=== PATIENT | male | born 1970 | race Caucasian/White ===

== ENCOUNTER 2017-02-15 07:08 | Emergency (ER) | payer OTHER ==
[2017-02-15] MEDS ORDERED: KETOROLAC TROMETHAMINE INJ/PF 30 MG/1 ML SDV IV ONE (08:07)
[2017-02-15] MEDS ORDERED: NORMAL SALINE 1000 ML 1,000 ML IV ONE (08:07)
[2017-02-15 08:37] LABS: ABSOLUTE BASOPHILS # (AUTO) 0.1 10^3/uL (0.0-0.2); ABSOLUTE EOSINOPHILS # (AUTO) 0.3 10^3/uL (0.0-0.6); ABSOLUTE MONOCYTES (AUTO) 0.4 10^3/uL (0.1-1.4); ABSOLUTE NEUT (AUTO) 2.5 10^3/uL (1.7-8.2); BASOPHILS % (AUTO) 1.5 % (0-2); EOSINOPHILS % (AUTO) 6.3 % (0-6); HEMATOCRIT 44.6 % (37.9-51.0); HEMOGLOBIN 15.7 g/dL (13.5-17.0); HGB HCT DIFFERENCE 2.5; LYMPHOCYTES % (AUTO) 24.1 % (13-45); MEAN CORPUSCULAR HEMOGLOBIN 29.9 pg (27.0-33.4); MEAN CORPUSCULAR HGB CONC 35.1 g/dL (32.0-36.0); MEAN CORPUSCULAR VOLUME 85 fl (80-97); MONOCYTES % (AUTO) 8.5 % (3-13); RED BLOOD COUNT 5.24 10^6/uL (4.35-5.55); RED CELL DISTRIBUTION WIDTH 13.3 % (11.5-14.0); SEGMENTED NEUTROPHILS % (AUTO) 59.6 % (42-78); WHITE BLOOD COUNT 4.2 10^3/uL (4.0-10.5)
[2017-02-15 08:52] LABS: ALANINE AMINOTRANSFERASE 192 U/L (21-72); ALBUMIN 4.7 g/dL (3.5-5.0); ALKALINE PHOSPHATASE 93 U/L (38-126); ANION GAP 14 (5-19); ASPARTATE AMINO TRANSFERASE 152 U/L (17-59); BILIRUBIN,DIRECT 0.4 mg/dL (0.0-0.4); BILIRUBIN,TOTAL 0.9 mg/dL (0.2-1.3); BLOOD UREA NITROGEN 13 mg/dL (7-20); CALCIUM 9.9 mg/dL (8.4-10.2); CARBON DIOXIDE 23 mmol/L (22-30); CHLORIDE 107 mmol/L (98-107); CREATININE RESULT 1.39 mg/dL (0.52-1.25); GLUCOSE 117 mg/dL (75-110); LIPASE 138.5 U/L (23-300); POTASSIUM 4.3 mmol/L (3.6-5.0); SODIUM 144.1 mmol/L (137-145); TOTAL PROTEIN 7.9 g/dL (6.3-8.2)
--- NOTE | 2017-02-15 09:19 | ER Document Report ---
ED General - General Chief Complaint: Possible Kidney Stone Stated Complaint: FLANK PAIN Time Seen by Provider: 02/15/17 08:07 Mode of Arrival: Ambulatory Information source: Patient Notes: 46-year-old male presents with complaints of suprapubic right-sided pain starts on this morning. Patient denies any fevers admits to nausea vomiting. Patient notes this feels similar to his previous 7 kidney stones TRAVEL OUTSIDE OF THE [place] IN LAST 30 DAYS: No - HPI Onset: Just prior to arrival Onset/Duration: Sudden Quality of pain: Sharp Severity: Moderate Pain Level: 2 Associated symptoms: None Exacerbated by: Denies Relieved by: Denies Similar symptoms previously: Yes Recently seen / treated by doctor: Yes - Related Data Allergies/Adverse Reactions: acetaminophen [From Percocet] Adverse Reaction (Verified 02/15/17 07:09) oxycodone [From Percocet] Adverse Reaction (Verified 02/15/17 07:09) Past Medical History - Social History Smoking Status: Never Smoker Cigarette use (# per day): No Chew tobacco use (# tins/day): No Smoking Education Provided: No Frequency of alcohol use: Rare Drug Abuse: None Family History: None, Reviewed & Not Pertinent Patient has suicidal ideation: No Patient has homicidal ideation: No - Past Medical History Cardiac Medical History: Reports: Hx Hypertension - Patient reports he is borderline hypertensive and does not take medications Pulmonary Medical History: Reports: Hx Bronchitis - as a child Renal/ Medical History: Reports: Hx Kidney Stones. Denies: Hx Peritoneal Dialysis Musculoskeltal Medical History: Reports Hx Arthritis - Neck and back Past Surgical History: Reports: Hx Appendectomy, Hx Herniorrhaphy, Hx Kidney ( Renal Surgery) - lithotripsy, Hx Orthopedic Surgery - left knee arthroscopy - Immunizations Hx Diphtheria, Pertussis, Tetanus Vaccination: Yes Review of Systems - Review of Systems Notes: REVIEW OF SYSTEMS: CONSTITUTIONAL : Denies fever, chills, or sweats. Denies recent illness. EENT: Denies eye, ear, throat, or mouth pain or symptoms. Denies nasal or sinus congestion or discharge. Denies throat, tongue, or mouth swelling or difficulty swallowing. CARDIOVASCULAR: Denies chest pain. Denies palpitations or racing or irregular heart beat. Denies ankle edema. RESPIRATORY: Denies cough, cold, or chest congestion. Denies shortness of breath, difficulty breathing, or wheezing. GASTROINTESTINAL: admits ot RLQ suprapubic pain GENITOURINARY: Denies difficulty urinating, painful urination, burning, frequency, blood in urine, or discharge. MUSCULOSKELETAL: Denies back or neck pain or stiffness. Denies joint pain or swelling. SKIN: Denies rash, lesions or sores. HEMATOLOGIC : Denies easy bruising or bleeding. LYMPHATIC: Denies swollen, enlarged glands. NEUROLOGICAL: Denies confusion or altered mental status. Denies passing out or loss of consciousness. Denies dizziness or lightheadedness. Denies headache. Denies weakness or paralysis or loss of use of either side. Denies problems with gait or speech. Denies sensory loss, numbness, or tingling. Denies seizures. PSYCHIATRIC: Denies anxiety or stress. Denies depression, suicidal ideation, or homicidal ideation. ALL OTHER SYSTEMS REVIEWED AND NEGATIVE. Dictation was performed using [employer] voice recognition software PHYSICAL EXAMINATION: GENERAL: Well-appearing, well-nourished and in no acute distress. HEAD: Atraumatic, normocephalic. EYES: Pupils equal round and reactive to light, extraocular movements intact, sclera anicteric, conjunctiva are normal. ENT: Nares patent, oropharynx clear without exudates. Moist mucous membranes. NECK: Normal range of motion, supple without lymphadenopathy LUNGS: Breath sounds clear to auscultation bilaterally and equal. No wheezes rales or rhonchi. HEART: Regular rate and rhythm without murmurs ABDOMEN: Soft, nontender, nondistended abdomen. No guarding, no rebound. No masses appreciated. Musculoskeletal: Normal range of motion, no pitting or edema. No cyanosis. NEUROLOGICAL: Cranial nerves grossly intact. Normal speech, normal gait. Normal sensory, motor exams PSYCH: Normal mood, normal affect. SKIN: Warm, Dry, normal turgor, no rashes or lesions noted. Physical Exam - Vital signs Vitals: Temp Pulse Resp BP Pulse Ox 97.6 F 57 L 18 174/97 H 97 02/15/17 07:14 02/15/17 07:14 02/15/17 07:14 02/15/17 07:14 02/15/17 07:14 Course - Re-evaluation Re-evalutation: 02/15/17 09:19 pts presentation ocnsistnat with another kidney stone, he has no ride 02/15/17 09:46 Patient states he feels much better,, will dc home with toradol After performing a Medical Screening Examination, I estimate there is LOW risk for ACUTE APPENDICITIS, BOWEL OBSTRUCTION, ACUTE CHOLECYSTITIS, PERFORATED DIVERTICULITIS, INCARCERATED HERNIA, PANCREATITIS, TESTICULAR TORSION or PERFORATED ULCER, thus I consider the discharge disposition reasonable. Also, there is no evidence or peritonitis, sepsis, or toxicity. I have reevaluated this patient multiple times and no significant life threatening changes are noted. The patient and I have discussed the diagnosis and risks, and we agree with discharging home with close follow-up with the understanding that symptoms and presentations can change. We also discussed returning to the Emergency Department immediately if new or worsening symptoms occur. We have discussed the symptoms which are most concerning (e.g., bloody stool, fever, changing or worsening pain, intractable vomiting - standard verbal up date) that necessitate immediate return. - Vital Signs Vital signs: Temp Pulse Resp BP Pulse Ox 97.6 F 57 L 18 174/97 H 97 02/15/17 07:14 02/15/17 07:14 02/15/17 07:14 02/15/17 07:14 02/15/17 07:14 - Laboratory Result Diagrams: 02/15/17 08:15 02/15/17 08:15 Laboratory results interpreted by me: 02/15/17 02/15/17 02/15/17 08:15 08:15 09:00 Eosinophils % 6.3 H Creatinine 1.39 H Est GFR (Non-Af Amer) 55 L Glucose 117 H AST 152 H ALT 192 H Urine Protein 30 H Urine Blood LARGE H Discharge - Discharge Clinical Impression: Kidney stone on right side Hematuria Qualifiers: Hematuria type: unspecified type Qualified Code(s): R31.9 - Hematuria, unspecified Condition: Stable Disposition: HOME, SELF-CARE Instructions: Kidney Stone ([facility]) Prescriptions: Ondansetron HCl [Zofran 8 mg Tablet] 8 mg PO Q8HP PRN #14 tablet PRN Reason: Ketorolac Tromethamine [Toradol 10 mg Tablet] 10 mg PO Q8 #20 tablet Tamsulosin HCl [Flomax 0.4 mg Cap.sr] 0.4 mg PO DAILY #7 cap.sr.24h Referrals: SAMM DAVILA MD [ACTIVE STAFF] - Follow up tomorrow
[2017-02-15 09:28] LABS: APPEARANCE,URINE CLOUDY; BILIRUBIN,URINE NEGATIVE (NEGATIVE); GLUCOSE, URINE NEGATIVE (NEGATIVE); KETONES,URINE NEGATIVE (NEGATIVE); LEUKOCYTE ESTERASE,URINE NEGATIVE (NEGATIVE); NITRITE,URINE NEGATIVE (NEGATIVE); PROTEIN,URINE 30 mg/dL (NEGATIVE); URINE SPECIFIC GRAVITY 1.017; UROBILINOGEN,URINE NEGATIVE mg/dL (<2.0)
[2017-02-15] MEDS ORDERED: TAMSULOSIN HCL 0.4 MG CAP.SR.24H PO ONE (09:46)
[2017-02-15 10:28] VITALS: BP 134/88
== END 2017-02-15 10:29 | disposition home or self-care (01) ==
LOC: ER 07:08
DX: N20.0 Calculus of kidney (principal); R31.9 Hematuria, unspecified; R11.2 Nausea with vomiting, unspecified; R10.31 Right lower quadrant pain; Z98.890 Other specified postprocedural states
CPT/HCPCS: 99284; 36415; 83690; 85025; 80053; 81001; J1885; J7030

== ENCOUNTER 2017-05-28 20:37 | Emergency (ER) | payer OTHER ==
[2017-05-28 21:14] VITALS: BP 149/94
[2017-05-28] MEDS ORDERED: ACETAMINOPHEN 325 MG TABLET PO ONE (23:57)
--- NOTE | 2017-05-29 00:01 | ER Document Report ---
ED Eye Complaint - General Chief Complaint: Eye Injury Stated Complaint: RIGHT EYE PAIN Time Seen by Provider: 05/28/17 22:03 Mode of Arrival: Ambulatory Information source: Patient TRAVEL OUTSIDE OF THE [place] IN LAST 30 DAYS: No - HPI Onset: This afternoon Eye location: Right Injury: Yes Occurred at: Home Quality of pain: Achy Severity: Mild Exposure: Direct trauma Contact lenses worn: No Notes: Patient arrives with complaints of right eye pain. He states that he was wrestling with his children when he was accidentally elbowed in the right eye and he now has pain in the eye. He denies any loss of vision. He states that his vision seems a little bit fuzzy. He denies any loss of consciousness. Is not on blood thinners. He denies any pain with eye movement. He denies any unilateral numbness tingling or weakness. He denies any significant headache. No chest pain or shortness of breath. He denies any other injuries or any other complaints at this time. - Related Data Allergies/Adverse Reactions: acetaminophen [From Percocet] Adverse Reaction (Verified 02/15/17 07:09) oxycodone [From Percocet] Adverse Reaction (Verified 02/15/17 07:09) Past Medical History - Social History Smoking Status: Smoker,Current Status Unk Chew tobacco use (# tins/day): No Frequency of alcohol use: None Drug Abuse: None Family History: None, Reviewed & Not Pertinent Patient has suicidal ideation: No Patient has homicidal ideation: No - Past Medical History Cardiac Medical History: Reports: Hx Hypertension - Patient reports he is borderline hypertensive and does not take medications Pulmonary Medical History: Reports: Hx Bronchitis - as a child Renal/ Medical History: Reports: Hx Kidney Stones. Denies: Hx Peritoneal Dialysis Musculoskeltal Medical History: Reports Hx Arthritis - Neck and back Past Surgical History: Reports: Hx Appendectomy, Hx Herniorrhaphy, Hx Kidney ( Renal Surgery) - lithotripsy, Hx Orthopedic Surgery - left knee arthroscopy - Immunizations Hx Diphtheria, Pertussis, Tetanus Vaccination: Yes Review of Systems - Review of Systems -: Yes All other systems reviewed and negative Physical Exam - Vital signs Vitals: Temp Pulse Resp BP Pulse Ox 98.2 F 65 18 149/94 H 95 05/28/17 21:11 05/28/17 21:11 05/28/17 21:11 05/28/17 21:11 05/28/17 21:11 - Notes Notes: GENERAL: alert, cooperative, nontoxic, no distress. HEAD: normocephalic, atraumatic EYES: Patient is noted to have a subconjunctival hemorrhage to the right eye in the inferior aspect. There is no hyphema. No significant tenderness to the orbital area with no swelling or crepitus. Pupils are equal round and react to light bilaterally. Extraocular muscles are intact bilaterally. Visual casas are all intact. Please see nurse charting for visual acuity. Swartz lamp exam shows no corneal abrasions or dendritic lesions. EARS: no external swelling, no external redness NOSE: atraumatic, no external swelling MOUTH/THROAT: mucous membranes moist and pink NECK: soft, supple, full range of motion, no meningismus. CHEST: no distress, lungs clear and equal throughout. No wheezing, rales, rhonchi. CARDIAC: regular rate and rhythm, no murmur, normal capillary refill, normal pulses. BACK: full range of motion, no CVA tenderness. EXTREMITIES: full range of motion of all extremities. No redness, no swelling. NEURO: alert and oriented 3, no focal deficits, full range of motion of all extremities. PYSCH: appropriate mood, affect. Patient is cooperative. SKIN: pink, warm, dry, no rash. - HEENT Visual acuity- Right eye: 20/40 Visual acuity- Left eye: 20/40 Course - Re-evaluation Re-evalutation: 05/28/17 23:58 Digital block patient is nontoxic appearing with stable vitals. The patient was elbowed in the right eye while wrestling with his children earlier today. He now is noted to have a subconjunctival hemorrhage. There is no hyphema. His visual casas are intact. Extraocular muscles are intact. Visual acuity is unremarkable. No sign of orbital fracture. Patient has a normal corneal exam. He was given a dose of Tylenol in the emergency department and will be discharged home with a referral to ophthalmology as needed. He states that he has naproxen at home that he can take as needed for pain. He was instructed to ice his eye as well. Follow-up with ophthalmology if not improving in the next few days, sooner for increasing pain, fever, blurred or loss vision, or any further concerns. The patient is noted to have elevated blood pressure during today's emergency department visit. The patient was informed of this finding. The patient was instructed that this may be related to pre-hypertension and requires further evaluation with a primary care provider. The patient has no hypertensive symptoms at this time. The patient's emergency department workup and current diagnosis were explained to the patient and or family. Follow-up instructions were provided. Medications if prescribed were discussed. Instructions for when to return to the emergency department including specific worrisome symptoms were discussed with the patient and/or family. - Vital Signs Vital signs: Temp Pulse Resp BP Pulse Ox 98.2 F 65 18 149/94 H 95 05/28/17 21:11 05/28/17 21:11 05/28/17 21:11 05/28/17 21:11 05/28/17 21:11 Procedures - Eye Procedure Right eye Fluorescein applied: Right Discharge - Discharge Clinical Impression: Subconjunctival hemorrhage of right eye Condition: Stable Disposition: HOME, SELF-CARE Instructions: Subconjunctival Hemorrhage ([facility]) Additional Instructions: Tylenol and Naprosyn as needed for pain. Apply ice to sore area. Follow-up with ophthalmology for increased pain, fever, blurred or loss vision, or for any further concerns. Your blood pressure was elevated during today's visit. Have this rechecked with your doctor. Forms: Elevated Blood Pressure, Smoking Cessation Education Referrals: JASON LEONARDO MD [NO LOCAL MD] - Follow up as needed MYRA RUSH OT [OPTHALMIC TUBE MILL OPERATOR] - Follow up as needed KASHMIR HAYES DO [ACTIVE STAFF] - Follow up as needed CHELA CHAVEZ MD [NO LOCAL MD] - Follow up as needed LARRY BRAXTON MD [ACTIVE STAFF] - Follow up as needed ETHEL MORALES MD [NO LOCAL MD] - Follow up as needed SHAISTA SANCHEZ MD [ACTIVE STAFF] - Follow up as needed TAMIKO GREGORY DO [ACTIVE STAFF] - Follow up as needed JOHN QURESHI MD [CONSULTING STAFF] - Follow up as needed MEGHANA BROWN MD [CONSULTING STAFF] - Follow up as needed
== END 2017-05-29 00:21 | disposition home or self-care (01) ==
LOC: ER 20:37
DX: H11.31 Conjunctival hemorrhage, right eye (principal); W50.0XXA Accidental hit or strike by another person, initial encounter; Y93.83 Activity, rough housing and horseplay; F17.200 Nicotine dependence, unspecified, uncomplicated; I10 Essential (primary) hypertension; Z88.6 Allergy status to analgesic agent; Z87.442 Personal history of urinary calculi
CPT/HCPCS: 99283

== ENCOUNTER 2017-08-12 21:20 | Emergency (ER) | payer OTHER ==
[2017-08-12 21:52] VITALS: BP 159/91
[2017-08-12] MEDS ORDERED: TRAMADOL HCL 50 MG TABLET PO ONE (22:17)
[2017-08-12] MEDS ORDERED: LIDOCAINE 5% (700 MG) TRANSDERMAL ADH..PATCH TP ONE (22:17)
--- NOTE | 2017-08-12 22:58 | ER Document Report ---
ED General - General Chief Complaint: Shoulder Pain Stated Complaint: SHOULDER PAIN Time Seen by Provider: 08/12/17 22:17 Notes: Patient is a 47-year-old [id number] male who presents with 3 days of left shoulder pain. The patient describes it as a dull, constant, aching pain worsened by attempts at moving the shoulder. He has been trying ibuprofen and Tylenol without any relief of the pain. He states that the symptoms started at work where he does repetitive ranges of motion with the left shoulder. He states that initially started as a slight pain which he continued to work through and has gotten progressively worse since that time. He has no history of similar pain or injury in the past. He has not seen his primary doctor regarding today's concerns. He denies any weakness or numbness of the left upper extremity. He has not seen his primary doctor regarding today's concerns. He denies any direct trauma to the extremity. TRAVEL OUTSIDE OF THE [place] IN LAST 30 DAYS: No - Related Data Allergies/Adverse Reactions: acetaminophen [From Percocet] Adverse Reaction (Verified 02/15/17 07:09) oxycodone [From Percocet] Adverse Reaction (Verified 02/15/17 07:09) Past Medical History - General Information source: Patient - Social History Smoking Status: Never Smoker Chew tobacco use (# tins/day): No Frequency of alcohol use: None Drug Abuse: None Lives with: Alone Family History: Reviewed & Not Pertinent Patient has suicidal ideation: No Patient has homicidal ideation: No - Past Medical History Cardiac Medical History: Reports: Hx Hypertension - Patient reports he is borderline hypertensive and does not take medications Pulmonary Medical History: Reports: Hx Bronchitis - as a child Renal/ Medical History: Reports: Hx Kidney Stones. Denies: Hx Peritoneal Dialysis Musculoskeltal Medical History: Reports Hx Arthritis - Neck and back Past Surgical History: Reports: Hx Appendectomy, Hx Herniorrhaphy, Hx Kidney ( Renal Surgery) - lithotripsy, Hx Orthopedic Surgery - left knee arthroscopy - Immunizations Hx Diphtheria, Pertussis, Tetanus Vaccination: Yes Review of Systems - Review of Systems Notes: Constitutional: Negative for fever. HENT: Negative for sore throat. Eyes: Negative for visual changes. Cardiovascular: Negative for chest pain. Respiratory: Negative for shortness of breath. Gastrointestinal: Negative for abdominal pain, vomiting or diarrhea. Genitourinary: Negative for dysuria. Musculoskeletal: Positive for left shoulder pain Skin: Negative for rash. Neurological: Negative for headaches, weakness or numbness. 10 point ROS negative except as marked above and in HPI. Physical Exam - Vital signs Vitals: Temp Pulse Resp BP Pulse Ox 97.9 F 61 17 159/91 H 96 08/12/17 21:50 08/12/17 21:50 08/12/17 21:50 08/12/17 21:50 08/12/17 21:50 Interpretation: Hypertensive Notes: PHYSICAL EXAMINATION: GENERAL: Well-appearing, well-nourished and in no acute distress. HEAD: Atraumatic, normocephalic. EYES: Pupils equal round and reactive to light, extraocular movements intact, sclera anicteric, conjunctiva are normal. ENT: nares patent, oropharynx clear without exudates. Moist mucous membranes. NECK: Normal range of motion, supple without lymphadenopathy LUNGS: Breath sounds clear to auscultation bilaterally and equal. No wheezes rales or rhonchi. HEART: Regular rate and rhythm without murmurs ABDOMEN: Soft, nontender, normoactive bowel sounds. No guarding, no rebound. No masses appreciated. EXTREMITIES: Patient is unable to raise his left arm beyond 90. Pain on palpation of the trapezius muscle as well as the AC joint. No obvious deformity of the shoulder. Extremity examination is otherwise unremarkable. NEUROLOGICAL: No focal neurological deficits. RMU motor and sensory distribution is intact bilaterally PSYCH: Normal mood, normal affect. SKIN: Warm, Dry, normal turgor, no rashes or lesions noted. Course - Re-evaluation Re-evalutation: 08/12/17 22:55 No evidence of a septic joint, gout flare, dislocation, or fracture on exam and imaging. Clinical history is most consistent with a ligamentous injury of the left shoulder likely the abductor rotator tendon. Patient also has pain on palpation of the AC joint although there is no evidence of an AC joint separation on x-ray. Vitals wnl. At this time, I do not see an indication for labs or further imaging. Will discharge with conservative measures, return precautions, and follow-up recommendations. At this time will discharge with return precautions and follow-up recommendations. Verbal discharge instructions given a the bedside and opportunity for questions given. Medication warnings reviewed. Patient is in agreement with this plan and has verbalized understanding of return precautions and the need for primary care follow-up in the next 24-72 hours. - Vital Signs Vital signs: Temp Pulse Resp BP Pulse Ox 97.9 F 61 17 159/91 H 96 08/12/17 21:50 08/12/17 21:50 08/12/17 21:50 08/12/17 21:50 08/12/17 21:50 - Diagnostic Test Radiology reviewed: Image reviewed, Reports reviewed Radiology results interpreted by me: 08/12/17 22:56 Left shoulder x-ray: No acute fracture or dislocation Discharge - Discharge Clinical Impression: Left shoulder pain Qualifiers: Chronicity: acute Qualified Code(s): M25.512 - Pain in left shoulder Condition: Good Disposition: HOME, SELF-CARE Additional Instructions: Your x-ray does not show any acute fracture today. You likely have a ligamentous strain. For your pain: Take ibuprofen 600 mg and acetaminophen 1000 mg every 6 hours together as needed for pain. You may use tramadol that has been prescribed as needed for not controlled by Tylenol. Continue to apply ice to the area is much your able. Please follow-up with your primary care physician if you do not have improving your symptoms in the next 1-2 weeks. Often times shoulder injuries take months to completely recover. You may need to see physical therapy for recovery. Please return immediately if you develop weakness, numbness, spreading redness from the area, or any other symptoms that are concerning to you. Prescriptions: Tramadol HCl 50 mg PO Q6H PRN #10 tablet PRN Reason: Severe Pain
--- NOTE | 2017-08-12 23:05 | RADIOLOGY REPORT (SQ) ---
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 NUMBER OF VIEWS: Three views. TECHNIQUE: Internal rotation, external rotation, and Y view images acquired of the left shoulder. LIMITATIONS: None. FINDINGS: MINERALIZATION: Normal. BONES: No acute fracture or dislocation. No worrisome bone lesions. JOINTS: No dislocation. VISUALIZED LUNGS AND RIBS: No pneumothorax. No rib fracture. SOFT TISSUES: No radiopaque foreign body. OTHER: No other significant finding. IMPRESSION: NO RADIOGRAPHIC EVIDENCE OF ACUTE INJURY. TECHNICAL DOCUMENTATION: JOB ID: [id number] [place]-72 2010 [employer]- All Rights Reserved Reading location - IP/workstation name: [email or web address]
== END 2017-08-12 23:17 | disposition home or self-care (01) ==
LOC: ER 21:20
DX: M25.512 Pain in left shoulder (principal); Z88.6 Allergy status to analgesic agent; Z87.442 Personal history of urinary calculi
CPT/HCPCS: 99283

== ENCOUNTER 2017-11-19 21:29 | Emergency (ER) | payer OTHER ==
[2017-11-19] MEDS ORDERED: DEXAMETHASONE SOD PHOS INJ 10 MG/1 ML VIAL IM ONE (23:09)
--- NOTE | 2017-11-19 23:11 | ER Document Report ---
ED General - General Chief Complaint: Ear Pain Stated Complaint: EAR PAIN Time Seen by Provider: 11/19/17 22:49 Notes: Patient is a 47-year-old male who presents with complaint of bilateral ear pain. He says he feels like his blood pressure behind his ears. He says whenever he goes below his nose he has severe pressure behind his ears that hurts. It is worse on the right side. He does not smoke but he is around a lot of secondhand smoke at home and at work. He denies any recent fevers or infections. No sore throat. No other complaints at this time. TRAVEL OUTSIDE OF THE [place] IN LAST 30 DAYS: No - Related Data Allergies/Adverse Reactions: acetaminophen [From Percocet] Adverse Reaction (Verified 02/15/17 07:09) oxycodone [From Percocet] Adverse Reaction (Verified 02/15/17 07:09) Past Medical History - Social History Smoking Status: Never Smoker Chew tobacco use (# tins/day): No Frequency of alcohol use: Rare Drug Abuse: None Family History: Reviewed & Not Pertinent Patient has suicidal ideation: No Patient has homicidal ideation: No - Past Medical History Cardiac Medical History: Reports: Hx Hypertension - Patient reports he is borderline hypertensive and does not take medications Pulmonary Medical History: Reports: Hx Bronchitis - as a child Renal/ Medical History: Reports: Hx Kidney Stones. Denies: Hx Peritoneal Dialysis Musculoskeletal Medical History: Reports Hx Arthritis - Neck and back Past Surgical History: Reports: Hx Appendectomy, Hx Herniorrhaphy, Hx Kidney ( Renal Surgery) - lithotripsy, Hx Orthopedic Surgery - left knee arthroscopy - Immunizations Hx Diphtheria, Pertussis, Tetanus Vaccination: Yes Review of Systems - Review of Systems Notes: My Normal Review Basic REVIEW OF SYSTEMS: CONSTITUTIONAL : Denies fever, chills, or sweats. Denies recent illness. EENT: Ear pain RESPIRATORY: Denies cough, cold, or chest congestion. Denies shortness of breath, difficulty breathing, or wheezing. NEUROLOGICAL: Denies altered mental status or loss of consciousness. mild headache. ALL OTHER SYSTEMS REVIEWED AND NEGATIVE. Physical Exam - Vital signs Vitals: Temp Pulse Resp BP Pulse Ox 98.5 F 58 L 17 161/93 H 98 11/19/17 22:02 11/19/17 22:02 11/19/17 22:02 11/19/17 22:02 11/19/17 22:02 - Notes Notes: General Appearance: Well nourished, alert, cooperative, no acute distress, no obvious discomfort. Well-appearing. Vitals: reviewed, See vital signs table. Head: no swelling or tenderness to the head Eyes: PERRL, EOMI, Conjuctiva clear Mouth: No decreasd moisture Throat: No tonsillar inflammation, No airway obstruction, No lymphadenopathy Ears: Normal-appearing tympanic membranes bilaterally with clear fluid behind them. Neuro: speech clear, oriented x 3, normal affect, responds appropriately to questions. Course - Re-evaluation Re-evalutation: 11/20/17 06:48 Patient is pressure on series causing pain most likely due to eustachian tube dysfunction. I gave him a dose of Decadron encouraged him to take over-the- counter Sudafed. I am informed him that if his symptoms are not improving after 3-4 days and he can follow-up with the ear nose and throat doctor, Dr. James. Encourage him return to ER immediately if he has worsening pain, fevers , or if he feels unwell. Patient agrees with plan will be discharged home. - Vital Signs Vital signs: Temp Pulse Resp BP Pulse Ox 97.6 F 65 18 164/91 H 98 11/19/17 23:58 11/19/17 23:58 11/19/17 23:58 11/19/17 23:58 11/19/17 23:58 Discharge - Discharge Clinical Impression: Ear pain Qualifiers: Laterality: bilateral Qualified Code(s): H92.03 - Otalgia, bilateral Condition: Good Disposition: HOME, SELF-CARE Additional Instructions: Please take over the counter decongestants such as pseudophedrine. Please follow up with Dr. James, ENT physician, if you are not having improvement in your symptoms after 3-4 days. Try to stay away from cigarette smoke.
[2017-11-19 23:58] VITALS: BP 164/91
== END 2017-11-19 23:58 | disposition home or self-care (01) ==
LOC: ER 21:29
DX: H92.03 Otalgia, bilateral (principal)
CPT/HCPCS: 99282; 96372; J1100

== ENCOUNTER 2018-01-04 23:22 | Emergency (ER) | payer OTHER ==
[2018-01-05] MEDS ORDERED: RINGERS SOLUTION,LACTATED 1,000 ML IV ONE (01:17)
[2018-01-05 02:03] LABS: ABSOLUTE BASOPHILS # (AUTO) 0.1 10^3/uL (0.0-0.2); ABSOLUTE EOSINOPHILS # (AUTO) 0.3 10^3/uL (0.0-0.6); ABSOLUTE LYMPHOCYTES (AUTO) 1.6 10^3/uL (0.5-4.7); ABSOLUTE MONOCYTES (AUTO) 0.7 10^3/uL (0.1-1.4); BASOPHILS % (AUTO) 0.9 % (0-2); EOSINOPHILS % (AUTO) 4.1 % (0-6); HEMATOCRIT 44.6 % (37.9-51.0); HEMOGLOBIN 15.7 g/dL (13.5-17.0); LYMPHOCYTES % (AUTO) 24.5 % (13-45); MEAN CORPUSCULAR HGB CONC 35.3 g/dL (32.0-36.0); MEAN CORPUSCULAR VOLUME 85 fl (80-97); MONOCYTES % (AUTO) 10.3 % (3-13); PLATELET COUNT 229 10^3/uL (150-450); RED BLOOD COUNT 5.25 10^6/uL (4.35-5.55); RED CELL DISTRIBUTION WIDTH 13.5 % (11.5-14.0); SEGMENTED NEUTROPHILS % (AUTO) 60.2 % (42-78); TOTAL CELLS COUNTED % (AUTO) 100 %; WHITE BLOOD COUNT 6.6 10^3/uL (4.0-10.5)
[2018-01-05 02:18] LABS: ALANINE AMINOTRANSFERASE 174 U/L (21-72); ALBUMIN 5.2 g/dL (3.5-5.0); ALKALINE PHOSPHATASE 86 U/L (38-126); ANION GAP 18 (5-19); ASPARTATE AMINO TRANSFERASE 177 U/L (17-59); BILIRUBIN,DIRECT 0.4 mg/dL (0.0-0.4); BILIRUBIN,TOTAL 1.1 mg/dL (0.2-1.3); BLOOD UREA NITROGEN 22 mg/dL (7-20); CALCIUM 10.5 mg/dL (8.4-10.2); CARBON DIOXIDE 22 mmol/L (22-30); CHLORIDE 100 mmol/L (98-107); CREATINE KINASE 1065 U/L (55-170); GLUCOSE 117 mg/dL (75-110); SODIUM 140.4 mmol/L (137-145); TOTAL PROTEIN 9.2 g/dL (6.3-8.2)
[2018-01-05] MEDS ORDERED: NORMAL SALINE 1000 ML 1,000 ML IV ONE ×2 (02:24→04:14)
--- NOTE | 2018-01-05 02:37 | ER Document Report ---
ED General - General Mode of Arrival: Ambulatory Information source: Patient TRAVEL OUTSIDE OF THE [place] IN LAST 30 DAYS: No <RUFINO DORANTES - Last Filed: 01/05/18 04:41> <ELSI MATHIS - Last Filed: 01/05/18 05:02> - General Chief Complaint: Abdominal Cramping Stated Complaint: ABDOMINAL CRAMPING Time Seen by Provider: 01/05/18 01:10 Notes: Patient is a 47-year-old male presenting to the emergency department complaining of cramping in the lower extremities, groin area and right lower quadrant. Patient states that he believes he got overheated today while at work and became dehydrated. He states his cramps "feel deep" and believes they are muscle spasms. Patient states the cramping was relieved with standing up and exasperated when sitting down. 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 (RUFINO DORANTES) - Related Data Allergies/Adverse Reactions: acetaminophen [From Percocet] Adverse Reaction (Verified 02/15/17 07:09) oxycodone [From Percocet] Adverse Reaction (Verified 02/15/17 07:09) Past Medical History - General Information source: Patient - Social History Smoking Status: Never Smoker Chew tobacco use (# tins/day): No Frequency of alcohol use: Occasional Drug Abuse: None Family History: Reviewed & Not Pertinent Patient has suicidal ideation: No Patient has homicidal ideation: No - Past Medical History Cardiac Medical History: Reports: Hx Hypertension - Patient reports he is borderline hypertensive and does not take medications Pulmonary Medical History: Reports: Hx Bronchitis - as a child Renal/ Medical History: Reports: Hx Kidney Stones Musculoskeletal Medical History: Reports Hx Arthritis - Neck and back Past Surgical History: Reports: Hx Appendectomy, Hx Herniorrhaphy, Hx Kidney ( Renal Surgery) - lithotripsy, Hx Orthopedic Surgery - left knee arthroscopy - Immunizations Hx Diphtheria, Pertussis, Tetanus Vaccination: Yes <RUFINO DORANTES - Last Filed: 01/05/18 04:41> Review of Systems - Review of Systems Constitutional: No symptoms reported EENT: No symptoms reported Cardiovascular: No symptoms reported Respiratory: No symptoms reported Gastrointestinal: See HPI, Abdominal pain Genitourinary: No symptoms reported Musculoskeletal: See HPI Skin: No symptoms reported Hematologic/Lymphatic: No symptoms reported Neurological/Psychological: No symptoms reported -: Yes All other systems reviewed and negative <RUFINO DORANTES - Last Filed: 01/05/18 04:41> Physical Exam - Vital signs Interpretation: Normal - General General appearance: Appears well, Alert - HEENT Head: Normocephalic, Atraumatic Eyes: Normal Pupils: PERRL Mucous membranes: Dry - Respiratory Respiratory status: No respiratory distress Chest status: Nontender Breath sounds: Normal Chest palpation: Normal - Cardiovascular Rhythm: Regular Heart sounds: Normal auscultation Murmur: No - Abdominal Inspection: Normal Distension: No distension Bowel sounds: Normal Tenderness: Nontender Organomegaly: No organomegaly - Back Back: Normal, Nontender - Extremities General upper extremity: Normal inspection, Nontender, Normal color, Normal ROM , Normal temperature General lower extremity: Normal inspection, Nontender, Normal color, Normal ROM , Normal temperature, Normal weight bearing. No: Abi's sign - Neurological Neuro grossly intact: Yes Cognition: Normal Orientation: AAOx4 Penelope Coma Scale Eye Opening: Spontaneous [place] Coma Scale Verbal: Oriented [place] Coma Scale Motor: Obeys Commands Penelope Coma Scale Total: 15 Speech: Normal Motor strength normal: LUE, RUE, LLE, RLE Sensory: Normal - Psychological Associated symptoms: Normal affect, Normal mood - Skin Skin Temperature: Warm Skin Moisture: Dry Skin Color: Normal <ELSI MATHIS - Last Filed: 01/05/18 05:02> - Vital signs Vitals: Temp Pulse Resp BP Pulse Ox 98.1 F 67 18 161/104 H 98 01/05/18 00:21 01/05/18 00:21 01/05/18 00:21 01/05/18 00:21 01/05/18 00:21 Course - Laboratory Result Diagrams: 01/05/18 01:45 01/05/18 03:50 <RUFINO DORANTES - Last Filed: 01/05/18 04:41> - Laboratory Result Diagrams: 01/05/18 01:45 01/05/18 03:50 <ELSI MATHIS - Last Filed: 01/05/18 05:02> - Re-evaluation Re-evalutation: 01/05/18 05:01 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 He had decreased p.o. intake over the last 2 days. He does not use any supplements or abuse any substances. Patient's initial CK was 1000. BUN and creatinine are elevated. Patient was fluid resuscitated. His BUN and creatinine are trending down and his CK has also trended down. Urine with no blood. Patient is taking p.o. without difficulty. He is not having any difficulty urinating. He will be discharged home and is instructed to continue to hydrate and not to go to work later today in the heat. Understands and agrees with plan. Stable for discharge. Follow-up with PMD this week. (ELSI MATHIS) - Vital Signs Vital signs: Temp Pulse Resp BP Pulse Ox 98.1 F 67 18 161/104 H 98 01/05/18 00:21 01/05/18 00:21 01/05/18 00:21 01/05/18 00:21 01/05/18 00:21 - Laboratory Laboratory results interpreted by me: 01/05/18 01/05/18 01/05/18 01:45 03:50 03:50 BUN 22 H 22 H Creatinine 1.94 H 1.59 H Est GFR ( Amer) 45 L 57 L Est GFR (Non-Af Amer) 37 L 47 L Glucose 117 H 118 H Calcium 10.5 H AST 177 H ALT 174 H Creatine Kinase 1065 H 819 H Total Protein 9.2 H Albumin 5.2 H Discharge <RUFINO DORANTES - Last Filed: 01/05/18 04:41> <ELSI MATHIS - Last Filed: 01/05/18 05:02> - Discharge Clinical Impression: Dehydration Condition: Stable Disposition: HOME, SELF-CARE Instructions: Dehydration ([facility]) Additional Instructions: Make sure you are drinking plenty of fluids especially if you are working in the heat. Follow-up with your doctor this week and return immediately if you have any worsening or concerning symptoms. Forms: Return to Work Scribe Attestation: 01/05/18 05:02 I personally performed the services described in the documentation, reviewed and edited the documentation which was dictated to the scribe in my presence, and it accurately records my words and actions. (ELSI MATHIS) Scribe Documentation - Scribe Written by Scribe:: Reji Modi, 01/05/2018 02:37 acting as scribe for :: Zacarias <RUFINO DORANTES - Last Filed: 01/05/18 04:41>
[2018-01-05 02:40] LABS: APPEARANCE,URINE CLEAR; BILIRUBIN,URINE NEGATIVE (NEGATIVE); COLOR,URINE YELLOW; GLUCOSE, URINE NEGATIVE (NEGATIVE); KETONES,URINE NEGATIVE (NEGATIVE); LEUKOCYTE ESTERASE,URINE NEGATIVE (NEGATIVE); NITRITE,URINE NEGATIVE (NEGATIVE); PROTEIN,URINE NEGATIVE (NEGATIVE); URINE SPECIFIC GRAVITY 1.011; UROBILINOGEN,URINE NEGATIVE mg/dL (<2.0)
[2018-01-05 04:14] LABS: ANION GAP 14 (5-19); BLOOD UREA NITROGEN 22 mg/dL (7-20); CALCIUM 9.5 mg/dL (8.4-10.2); CARBON DIOXIDE 22 mmol/L (22-30); CHLORIDE 104 mmol/L (98-107); GLUCOSE 118 mg/dL (75-110); POTASSIUM 4.1 mmol/L (3.6-5.0); SODIUM 139.8 mmol/L (137-145)
[2018-01-05 05:39] VITALS: BP 140/92
== END 2018-01-05 05:39 | disposition home or self-care (01) ==
LOC: ER 23:22
DX: E86.0 Dehydration (principal); R10.84 Generalized abdominal pain; Z88.6 Allergy status to analgesic agent; Z87.442 Personal history of urinary calculi
CPT/HCPCS: 99284; 96360; 96361; 36415; 82550; 85025; 80048; 80053; 81001; J7030; J7120

== ENCOUNTER 2018-11-23 20:12 | Emergency (ER) | payer OTHER ==
[2018-11-23] MEDS ORDERED: DEXAMETHASONE SOD PHOS INJ 10 MG/1 ML VIAL IM ONE (22:28)
[2018-11-23] MEDS ORDERED: LIDOCAINE 5% (700 MG) TRANSDERMAL ADH..PATCH TP ONE (22:28)
[2018-11-23] MEDS ORDERED: KETOROLAC TROMETHAMINE 60 MG/2 ML SDV IM ONE (22:28)
--- NOTE | 2018-11-23 22:29 | ER Document Report ---
HPI - HPI Time Seen by Provider: 11/23/18 22:22 Pain Level: 5 Context: Patient is a 48-year-old male who presents to the emergency department with a chief complaints of low back pain. He states that he has had his low back pain for the past few months. This morning he woke up and he was crushed up in a ball because the pain was so bad. He states that the pain is in bilateral sides of his back and radiates down his right buttock. Patient has a past medical history of a hernia, kidney stones, but denies any feeling like his kidney stones in the past. Denies any hematuria. Patient is currently on naproxen. He has not seen his primary care provider in regards to this issue. Denies IV drug abuse, loss of bowel or bladder function, unable to walk, or any other neurological symptoms. - ROS Notes: REVIEW OF SYSTEMS: CONSTITUTIONAL : Denies recent illness. Denies recent unintentional weight loss. Denies fever, chills, or sweats. EENT: Denies eye, ear, throat, or mouth pain, discharge, or symptoms. Denies nasal or sinus congestion. CARDIOVASCULAR: Denies chest pain. RESPIRATORY: Denies shortness of breath, cough, congestion, difficulty breathing, or wheezing. GASTROINTESTINAL: Denies nausea, vomiting, and diarrhea. Denies abdominal pain. Denies constipation. GENITOURINARY: Denies difficulty urinating, burning, blood in urine, urgency or frequency. MUSCULOSKELETAL: See HPI SKIN: Denies rash, itchiness, or lesions HEMATOLOGIC : Denies easy bruising or bleeding. LYMPHATIC: Denies swollen, painful, enlarged glands. NEUROLOGICAL: Denies no numbness or tingling denies weakness. Denies headache. Denies altered mental status. Denies alteration in speech. PSYCHIATRIC: Denies stress, anxiety, alteration in sleep patterns, or depression. All other systems reviewed and negative. - REPRODUCTIVE Reproductive: DENIES: : Past Medical History - Social History Smoking Status: Unknown if Ever Smoked Family History: Reviewed & Not Pertinent - Past Medical History Cardiac Medical History: Reports: Hx Hypertension - Patient reports he is borderline hypertensive and does not take medications Pulmonary Medical History: Reports: Hx Bronchitis - as a child Renal/ Medical History: Reports: Hx Kidney Stones. Denies: Hx Peritoneal Dialysis Musculoskeletal Medical History: Reports Hx Arthritis - Neck and back Past Surgical History: Reports: Hx Appendectomy, Hx Herniorrhaphy, Hx Kidney (Renal Surgery) - lithotripsy, Hx Orthopedic Surgery - left knee arthroscopy - Immunizations Hx Diphtheria, Pertussis, Tetanus Vaccination: Yes Vertical Provider Document - CONSTITUTIONAL Agree With Documented VS: Yes Exam Limitations: No Limitations General Appearance: No Apparent Distress - INFECTION CONTROL TRAVEL OUTSIDE OF THE [place] IN LAST 30 DAYS: No - HEENT HEENT: Atraumatic, Normocephalic - NECK Neck: Normal Inspection - RESPIRATORY Respiratory: No Respiratory Distress - CARDIOVASCULAR Cardiovascular: Regular Rate, Regular Rhythm Pulses: Normal: Radial - BACK Back: Normal Inspection - MUSCULOSKELETAL/EXTREMETIES Musculoskeletal/Extremeties: Tender - Bilateral lower back, especially on right side - NEURO Level of Consciousness: Awake, Alert, Appropriate Motor/Sensory: No Motor Deficit Deep Tendon Reflexes: 2+ - DERM Integumentary: Warm, Dry Course - Re-evaluation Re-evalutation: 11/23/18 22:31 Differential diagnosis for back pain includes muscle spasm, muscle strain, slipped disc cauda equina syndrome, vertebral fracture, vertebral tumor, epidural abscess, pyelonephritis, or AAA. Based on history and exam, the most likely etiology of the patient's back pain is chronic. Emergent MRI is not indicated at this time because the patient does not have new weakness, or cauda equina syndrome. Patient does not have bladder or bowel dysfunction. Patient does not have history of IV drug use, therefore, I do not suspect an epidural abscess. Patient does not have recent weight loss or night sweats, and does not have a known history of cancer. Patient received Decadron, Toradol, and lidocaine patch. Lidocaine patch prescription was provided for the patient to go home with. Patient has follow- up with his primary care provider in regards to this visit. Follow-up precautions were given. Verbal discharge instructions were given to the patient. They verbalized understanding. They are stable for discharge. - Vital Signs Vital signs: Temp Pulse Resp BP Pulse Ox 98.2 F 61 18 146/90 H 97 11/23/18 20:20 11/23/18 20:20 11/23/18 20:20 11/23/18 20:20 11/23/18 20:20 Discharge - Discharge Clinical Impression: Low back pain Qualifiers: Chronicity: chronic Back pain laterality: midline Sciatica presence: with sciatica Sciatica laterality: sciatica of right side Qualified Code(s): M54.41 - Lumbago with sciatica, right side Condition: Stable Disposition: HOME, SELF-CARE Instructions: Ice Packs ([facility]), Low Back Pain ([facility]), Warm Packs ([facility]) Additional Instructions: You were seen today in the emergency department for back pain. Your back pain is most consistent with sciatic nerve pain. You may take naproxen 500 mg twice a day, and acetaminophen 1000 mg every 6 hours as needed for the pain. You may also buy [id number] Aspercreme with lidocaine and apply to the area per box instructions. If you develop a fever greater than 100.4 F, lose bowel or bladder function, are unable to walk, or have any symptoms that are worrisome to you, please return to the emergency department. Follow-up with your primary care provider in regards to this visit. Prescriptions: Lidocaine [Lidoderm 5% (700 mg) Transdermal Patch] 1 patch TP DAILY PRN #10 adh..patch PRN Reason: Forms: Return to Work Referrals: [facility] [Primary Care [facility]] - Follow up as needed
[2018-11-23 22:54] VITALS: BP 159/97
== END 2018-11-23 22:53 | disposition home or self-care (01) ==
LOC: ER 20:12
DX: M54.41 Lumbago with sciatica, right side (principal); M79.604 Pain in right leg; Z79.899 Other long term (current) drug therapy; I10 Essential (primary) hypertension
CPT/HCPCS: 99283; 96372; J1885; J1100

== ENCOUNTER 2019-04-24 17:29 | Emergency (ER) | payer OTHER ==
[2019-04-24] MEDS ORDERED: IBUPROFEN 800 MG TABLET PO ONE (17:44)
--- NOTE | 2019-04-24 17:49 | ER Document Report ---
ED Medical Screen (RME) - General Chief Complaint: Laceration Stated Complaint: RIGHT SHOULDER LACERATION Time Seen by Provider: 04/24/19 17:44 Primary Care Provider: VIVI EVANS [Primary Care Provider] - Follow up as needed TRAVEL OUTSIDE OF THE [place] IN LAST 30 DAYS: No - HPI Notes: 04/24/19 17:45 49-year-old male presents to the emergency room today with a 4 cm "V" laceration to his right shoulder as well as a 1 cm linear laceration to his right bicep after he allegedly fell into the wall and hit a frame after tripping over the dog approximately 1 hour ago. Patient also has an abrasion on his head. Patient denies any loss of consciousness or change in level consciousness. Patient denies being on blood thinners. Has not had any [id number] medications for pain. Pain is approximately 5 out of 10, throbbing achy. Bleeding is controlled. Denies any chest pain shortness of breath, fevers or chills. Patient states his tetanus is not up-to-date. I have greeted and performed a rapid initial assessment of this patient. A comprehensive ED assessment and evaluation of the patient, analysis of test results and completion of the medical decision making process will be conducted by additional ED providers. PHYSICAL EXAMINATION: GENERAL: Well-appearing, well-nourished and in no acute distress. HEAD: Atraumatic, normocephalic. NECK: Normal range of motion LUNGS: No respiratory distress Musculoskeletal: Normal range of motion NEUROLOGICAL: Normal speech, normal gait. PSYCH: Normal mood, normal affect. SKIN: Warm, Dry, normal turgor, no rashes or lesions noted. right shoulder with 4cm "V" laceration, 1 cm linear laceration to right bicep. - Related Data Allergies/Adverse Reactions: acetaminophen [From Percocet] Adverse Reaction (Verified 04/24/19 17:44) oxycodone [From Percocet] Adverse Reaction (Verified 04/24/19 17:44) Past Medical History - Past Medical History Cardiac Medical History: Reports: Hx Hypertension - Patient reports he is borderline hypertensive and does not take medications Pulmonary Medical History: Reports: Hx Bronchitis - as a child Renal/ Medical History: Reports: Hx Kidney Stones. Denies: Hx Peritoneal Dialysis Musculoskeltal Medical History: Reports Hx Arthritis - Neck and back Past Surgical History: Reports: Hx Appendectomy, Hx Herniorrhaphy, Hx Kidney (Renal Surgery) - lithotripsy, Hx Orthopedic Surgery - left knee arthroscopy - Immunizations Hx Diphtheria, Pertussis, Tetanus Vaccination: Yes Doctor's Discharge - Discharge Referrals: [facility] [Primary [facility]] - Follow up as needed
--- NOTE | 2019-04-24 18:02 | RADIOLOGY REPORT (SQ) ---
EXAM DESCRIPTION: SHOULDER RIGHT 2 OR MORE VIEWS COMPLETED DATE/TIME: 04/24/2019 5:51 pm REASON FOR STUDY: fell into wall, laceration/hematoma to shoulder COMPARISON: Right shoulder three views 04/02/2007 NUMBER OF VIEWS: Three views. TECHNIQUE: Internal rotation, external rotation, and Y view images acquired of the right shoulder. LIMITATIONS: None. FINDINGS: MINERALIZATION: Normal. BONES: No acute fracture. No worrisome bone lesions. JOINTS: No glenohumeral dislocation. No widening at the acromioclavicular joint VISUALIZED LUNGS AND RIBS: No pneumothorax. No rib fracture. SOFT TISSUES: No radiopaque foreign body. OTHER: No other significant finding. IMPRESSION: No acute findings TECHNICAL DOCUMENTATION: JOB ID: [id number] [employer]- All Rights Reserved Reading location - IP/workstation name: [facility]
[2019-04-24] MEDS ORDERED: LIDOCAINE 1% INJ-PF (10 MG/ML) 30 ML SDV INJ ONE (21:40)
--- NOTE | 2019-04-24 21:50 | ER Document Report ---
ED General - General Chief Complaint: Shoulder Injury Stated Complaint: RIGHT SHOULDER LACERATION Time Seen by Provider: 04/24/19 17:44 Primary Care Provider: [facility] [Primary Care Provider] - Follow up as needed TRAVEL OUTSIDE OF THE [place] IN LAST 30 DAYS: No - HPI Notes: Patient is a 49-year-old male with a history of "borderline hypertension) not currently on medicines who presents complaining of right shoulder injury and laceration this afternoon after he got tripped into a metal frame. Patient states that he did not injure any other part of his body. He is still able to move his arm without difficulty, but does have soreness associated. He did notice 2 different lacerations one on his shoulder and another in the bicep area. He is not on any blood thinning medication. Denies any headache, fever, head injury, neck pain, changes in vision/speech/mentation/hearing, URI, sore throat, chest pain, palpitations, syncope, cough, shortness of breath, wheeze, dyspnea, abdominal pain, nausea/vomiting/diarrhea, urinary retention, dysuria, hematuria, loss of control of bowel or bladder, numbness/tingling, saddle anesthesia, muscle paralysis/weakness, or rash. - Related Data Allergies/Adverse Reactions: acetaminophen [From Percocet] Adverse Reaction (Verified 04/24/19 17:44) oxycodone [From Percocet] Adverse Reaction (Verified 04/24/19 17:44) Past Medical History - Social History Smoking Status: Unknown if Ever Smoked Family History: Reviewed & Not Pertinent Patient has suicidal ideation: No Patient has homicidal ideation: No - Past Medical History Cardiac Medical History: Reports: Hx Hypertension - Patient reports he is borderline hypertensive and does not take medications Pulmonary Medical History: Reports: Hx Bronchitis - as a child Renal/ Medical History: Reports: Hx Kidney Stones. Denies: Hx Peritoneal Dialysis Musculoskeletal Medical History: Reports Hx Arthritis - Neck and back Past Surgical History: Reports: Hx Appendectomy, Hx Herniorrhaphy, Hx Kidney (Renal Surgery) - lithotripsy, Hx Orthopedic Surgery - left knee arthroscopy - Immunizations Hx Diphtheria, Pertussis, Tetanus Vaccination: Yes Review of Systems - Review of Systems -: Yes All other systems reviewed and negative Physical Exam - Vital signs Vitals: Temp Pulse Resp BP Pulse Ox 98.1 F 77 18 170/110 H 97 04/24/19 17:44 04/24/19 17:44 04/24/19 17:44 04/24/19 17:44 04/24/19 17:44 - Notes Notes: PHYSICAL EXAMINATION: GENERAL: Well-appearing, well-nourished and in no acute distress. NECK: Normal range of motion, supple without lymphadenopathy. Non-tender. Spurling negative. No rigidity/meningismus. LUNGS: Breath sounds clear to auscultation bilaterally and equal. No wheezes rales or rhonchi. HEART: Regular rate and rhythm without murmurs, rubs, gallops. Musculoskeletal: Rt shoulder: FROM to passive/active. Strength 4+/5 due to pain. Neg speed test. No crepitus. No erythema or warmth. No deformity or ecchymosis. RC intact 5+/5 strength. Extremities: No cyanosis, clubbing, or edema b/l. Peripheral pulses 2+. Capillary refill less than 3 seconds. NEUROLOGICAL: Normal speech, normal gait. Normal sensory, motor exams PSYCH: Normal mood, normal affect. SKIN: There is a 2x0.5cm linear superficial laceration noted to the top of the rt shoulder area and another 1.5cm linear superficial lac to the mid lateral upper arm. Course - Re-evaluation Re-evalutation: 04/24/19 Patient is an afebrile, well-hydrated, 54-year-old female who presents to the ED with right shoulder pain which I suspect to be a contusion. Vitals are acceptable without any significant tachycardia, tachypnea, or hypoxia. PE is otherwise unremarkable for any neurovascular compromise, obvious tendon/ligament rupture, obvious fracture/dislocation, septic joint. X-ray was unremarkable for any acute pathology. Patient is nontoxic-appearing. Wounds were thoroughly irrigated and cleansed. Wound edges approximated appropriately utilizing a total of 7 simple interrupted sutures. No other labs or imaging warranted at this time based on H&P. Rx for keflex as precautionary. Conservative measures otherwise for symptoms. Recheck with your PCM in 3-5 days. Consider consult orthopedics. Return to the ED with any worsening/concerning symptoms otherwise as reviewed in discharge. Sutures will need removed in 10 days. Patient is in agreement. - Vital Signs Vital signs: Temp Pulse Resp BP Pulse Ox 98.0 F 60 16 144/94 H 95 04/24/19 18:52 04/24/19 18:52 04/24/19 18:52 04/24/19 18:52 04/24/19 18:52 Procedures - Laceration/Wound Repair Right Shoulder Wound length (cm): 2 Wound's Depth, Shape: Superficial, Linear Laceration pre-procedure: Sterile PPE donned, Sterile drapes applied, Other - chlorhexadine/saline Anesthetic type: 1% Lidocaine Volume Anesthetic (mLs): 4 Wound explored: Clean, No foreign body removed Irrigated w/ Saline (mLs): 200 Wound Repaired With: Sutures Suture Size/Type: 4:0, Ethilon Number of Sutures: 4 Layer Closure?: No Post-procedure wound care: Sterile dressing applied Post-procedure NV exam normal: Yes Complications: No Right Arm Wound length (cm): 1.5 Wound's Depth, Shape: Superficial, Linear Laceration pre-procedure: Sterile PPE donned, Sterile drapes applied, Other - chlorhexadine/saline Anesthetic type: 1% Lidocaine Volume Anesthetic (mLs): 3 Wound explored: Clean, No foreign body removed Irrigated w/ Saline (mLs): 150 Suture Size/Type: 4:0, Ethilon Number of Sutures: 3 Layer Closure?: No Post-procedure wound care: Sterile dressing applied Post-procedure NV exam normal: Yes Complications: No Discharge - Discharge Clinical Impression: Right shoulder injury Qualifiers: Encounter type: initial encounter Qualified Code(s): S49.91XA - Unspecified injury of right shoulder and upper arm, initial encounter Laceration of right upper arm Qualifiers: Encounter type: initial encounter Qualified Code(s): S41.111A - Laceration without foreign body of right upper arm, initial encounter Laceration of right shoulder Qualifiers: Encounter type: initial encounter Qualified Code(s): S41.011A - Laceration without foreign body of right shoulder, initial encounter Condition: Stable Disposition: HOME, SELF-CARE Instructions: Laceration Care ([facility]), Soap Cleansing ([facility]) Additional Instructions: Do not shower or bathe for 24 hours. After 24 hours you may shower but no submersion of the wound under water. Keep the original dressing on the wound for 24 hours unless the drainage soaks through. Change the dressing daily thereafter and keep the knots of the suture material clean from any dried discharge. You may leave the wound open to the air once there is no more discharge. See your PCM in 2-3 days for a recheck. Monitor for any signs of worsening pain or redness, purulent drainage, streaks, and/or fever. Return to the ED if noticing any of the above symptoms or as needed. Take medications as directed. Your sutures will need to be removed in 10 days. Rest, Ice, Compression Tylenol/ibuprofen as needed Light stretches daily Strength exercises as able Moist heat and massage may help Consider consult(s) with Orthopedics/physical therapy for ongoing/worsening symptoms Return to the ED with any worsening symptoms and/or development of fever, headache, chest pain, palpitations, syncope, shortness of breath, trouble breathing, abdominal pain, n/v/d, muscle weakness/paralysis, numbness/tingling, swelling, redness, or other worsening symptoms that are concerning to you. Prescriptions: Cephalexin Monohydrate [Keflex 500 mg Capsule] 500 mg PO BID #14 capsule Forms: Elevated Blood Pressure [facility]errals: [facility] [Primary Care [facility]] - Follow up as needed
[2019-04-24] MEDS ORDERED: CEPHALEXIN 500 MG CAPSULE PO ONE (22:24)
[2019-04-24 22:57] VITALS: BP 165/100
== END 2019-04-24 22:55 | disposition home or self-care (01) ==
LOC: ER 17:29
DX: S49.91XA Unspecified injury of right shoulder and upper arm, initial encounter (principal); S41.111A Laceration without foreign body of right upper arm, initial encounter; S41.011A Laceration without foreign body of right shoulder, initial encounter; W01.119A Fall on same level from slipping, tripping and stumbling with subsequent striking against unspecified sharp object, initial encounter; Z88.6 Allergy status to analgesic agent; Z87.442 Personal history of urinary calculi
CPT/HCPCS: 99283

== ENCOUNTER 2019-05-06 11:12 | Emergency (ER) | payer OTHER ==
--- NOTE | 2019-05-06 11:24 | ER Document Report ---
ED Medical Screen (RME) - General Chief Complaint: Chest Congestion Stated Complaint: FEVER/COUGH/CONGESTION Time Seen by Provider: 05/06/19 11:16 Primary Care Provider: VIVI EVANS [Primary Care Provider] - Follow up as needed Mode of Arrival: Ambulatory Information source: Patient Notes: 49-year-old male presents emergency department with complaints of severe cough congestion and upper abdominal pain since Tuesday. Denies vomiting diarrhea. Last bowel was last night normal. Reports he is been feeling really hot. I have greeted and performed a rapid initial assessment of this patient. A comprehensive ED assessment and evaluation of the patient, analysis of test results and completion of the medical decision making process will be conducted by additional ED providers. TRAVEL OUTSIDE OF THE [place] IN LAST 30 DAYS: No - Related Data Allergies/Adverse Reactions: acetaminophen [From Percocet] Adverse Reaction (Verified 05/06/19 11:17) oxycodone [From Percocet] Adverse Reaction (Verified 05/06/19 11:17) Past Medical History - Social History Chew tobacco use (# tins/day): No Frequency of alcohol use: None - Past Medical History Cardiac Medical History: Reports: Hx Hypertension - Patient reports he is borderline hypertensive and does not take medications Pulmonary Medical History: Reports: Hx Bronchitis - as a child Renal/ Medical History: Reports: Hx Kidney Stones. Denies: Hx Peritoneal Dialysis Musculoskeltal Medical History: Reports Hx Arthritis - Neck and back Past Surgical History: Reports: Hx Appendectomy, Hx Herniorrhaphy, Hx Kidney (Renal Surgery) - lithotripsy, Hx Orthopedic Surgery - left knee arthroscopy - Immunizations Hx Diphtheria, Pertussis, Tetanus Vaccination: Yes Physical Exam - Vital signs Vitals: Temp Pulse Resp BP Pulse Ox 97.9 F 70 16 137/98 H 96 05/06/19 11:17 05/06/19 11:17 05/06/19 11:17 05/06/19 11:17 05/06/19 11:17 Course - Vital Signs Vital signs: Temp Pulse Resp BP Pulse Ox 97.9 F 70 16 137/98 H 96 05/06/19 11:17 05/06/19 11:17 05/06/19 11:17 05/06/19 11:17 05/06/19 11:17 Doctor's Discharge - Discharge Referrals: [facility] [Primary Care Provider] - Follow up as needed
--- NOTE | 2019-05-06 11:25 | ER Document Report ---
ED General - General Chief Complaint: Chest Congestion Stated Complaint: FEVER/COUGH/CONGESTION Time Seen by Provider: 05/06/19 11:16 Primary Care Provider: SHELBIE ZAVALETA MD [ACTIVE STAFF] - Follow up as needed FRANCK AGUILA DO [NO LOCAL MD] - Follow up as needed [facility] [Primary Care Provider] - Follow up tomorrow Mode of Arrival: Ambulatory TRAVEL OUTSIDE OF THE [place] IN LAST 30 DAYS: No - HPI Notes: 49-year-old male with a medical history of GONZALEZ and elevated liver enzymes which [facility] presents [facility] room for headache, chills, body aches, severe coughing, sinus congestion, chest wall pain from coughing and epigastric pain. Has not been drinking as much water as he typically does. No [id number]-[id number] medications have been tried. Patient did get the flu shot. Reports chest wall pain. Patient did have a bowel movement yesterday. Is not on blood thinners or any anticoagulants, denies any blood dyscrasias. denies any melena. Denies any vomiting. Denies chest pain,palpitations, shortness of breath, dyspnea, nausea, vomiting, diarrhea, , hematuria,blurred vision, double vision, loss of vision, speech changes, LH, dizziness, syncope, headaches, wheezing, ST, URI, neck pain, weakness, bowel or bladder dysfunction, saddle anesthesia, numbness or tingling in bilateral upper or lower extremities equally, muscle paralysis, weakness in bilateral upper or lower extremities equally or rash. Patient is managed by the [facility] - Related Data Allergies/Adverse Reactions: acetaminophen [From Percocet] Adverse Reaction (Verified 05/06/19 11:17) oxycodone [From Percocet] Adverse Reaction (Verified 05/06/19 11:17) Past Medical History - General Information source: Patient - Social History Smoking Status: Never Smoker Chew tobacco use (# tins/day): No Frequency of alcohol use: None Family History: Reviewed & Not Pertinent Patient has suicidal ideation: No Patient has homicidal ideation: No - Past Medical History Cardiac Medical History: Reports: Hx Hypertension - Patient reports he is borderline hypertensive and does not take medications Pulmonary Medical History: Reports: Hx Bronchitis - as a child Renal/ Medical History: Reports: Hx Kidney Stones. Denies: Hx Peritoneal Dialysis Musculoskeletal Medical History: Reports Hx Arthritis - Neck and back Past Surgical History: Reports: Hx Appendectomy, Hx Herniorrhaphy, Hx Kidney (Renal Surgery) - lithotripsy, Hx Orthopedic Surgery - left knee arthroscopy - Immunizations Hx Diphtheria, Pertussis, Tetanus Vaccination: Yes Review of Systems - Review of Systems Constitutional: See HPI EENT: See HPI Cardiovascular: No symptoms reported Respiratory: See HPI Gastrointestinal: See HPI Genitourinary: No symptoms reported Male Genitourinary: No symptoms reported Musculoskeletal: No symptoms reported Skin: No symptoms reported Hematologic/Lymphatic: No symptoms reported Neurological/Psychological: No symptoms reported Physical Exam - Vital signs Vitals: Temp Pulse Resp BP Pulse Ox 97.9 F 70 16 137/98 H 96 05/06/19 11:17 05/06/19 11:17 05/06/19 11:17 05/06/19 11:17 05/06/19 11:17 - Notes Notes: PHYSICAL EXAMINATION:reviewed vital signs by RN GENERAL: Well-appearing, well-nourished and in no acute distress. HEAD: Atraumatic, normocephalic. EYES: Pupils equal round and reactive to light, extraocular movements intact, conjunctiva are normal. ENT: TM intact with bilateral serous effusion, no erythema. Nares boggy bilaterally, oropharynx with erythema without exudates. Moist mucous membranes. Noted postauricular lymphadenopathy bilaterally. NECK: Normal range of motion, supple without lymphadenopathy LUNGS: Breath sounds clear to auscultation bilaterally and equal. No wheezes rales or rhonchi. HEART: Regular rate and rhythm without murmurs ABDOMEN: Soft, epigastric tenderness on palpation, nontender, nondistended abdomen. No guarding, no rebound. No masses appreciated. Musculoskeletal: Normal range of motion, no pitting or edema. No cyanosis. NEUROLOGICAL: Cranial nerves grossly intact. Normal speech, normal gait. Normal sensory, motor exams PSYCH: Normal mood, normal affect. SKIN: Warm, Dry, normal turgor, no rashes or lesions noted. Course - Re-evaluation Re-evalutation: 05/06/19 12:46 Afebrile vital stable no distress. Nurse's notes reviewed. CBC negative for leukocytosis or anemia. CMP shows creatinine of 1.44, while trending his creatinine is these seem to fall into his baseline. AST elevated at 119, however patient has been diagnosed with GONZALEZ and states that his liver was biopsied back in 2012 [facility] Ultrasound of abdomen limited does show right nephrolithiasis and fatty liver, correlates with his elevated AST. Patient given IV rehydration with 2 L of fluid, 30 mg Toradol IVP EKG negative for ST segment elevation, no STEMI. Patient that the positive for mononucleosis, negative for strep pharyngitis as well as influenza a and B. Abdominal ultrasound shows a 7 mm nonobstructing nephrolithiasis without hydronephrosis in the right kidney. Patient states that he has had this renal stone for quite a while. Chest x-ray negative for pneumonia or pneumothorax or any other acute pulmonary issues per radiology. Patient states his epigastric pain does feel better after GI cocktail. Will start patient on a PPI as well as following up with gastroenterology for epigastric pain, urology for his right- sided nephrolithiasis and his primary care provider for his mononucleosis within the next week. Advised rest, increase hydration. After performing a Medical Screening Examination, I estimate there is LOW risk for ACUTE APPENDICITIS, BOWEL OBSTRUCTION, ACUTE CHOLECYSTITIS, PERFORATED DIVERTICULITIS, INCARCERATED HERNIA, PANCREATITIS, TESTICULAR TORSION, ACUTE CORONARY SYNDROME, PULMONARY EMBOLI, RESPIRATORY FAILURE, SEPSIS OR MENINGITIS,or PERFORATED ULCER, thus I consider the discharge disposition reasonable. Also, there is no evidence or peritonitis, sepsis, or toxicity. I have reevaluated this patient multiple times and no significant life threatening changes are noted. The patient and I have discussed the diagnosis and risks, and we agree with discharging home with close follow-up with the understanding that symptoms and presentations can change. We also discussed returning to the Emergency Department immediately if new or worsening symptoms occur. We have discussed the symptoms which are most concerning (e.g., bloody stool, fever, changing or worsening pain,trouble leeanna athing, neck stiffness, intractable vomiting - standard verbal up date) that necessitate immediate return. - Vital Signs Vital signs: Temp Pulse Resp BP Pulse Ox 97.9 F 70 16 137/98 H 96 05/06/19 11:17 05/06/19 11:17 05/06/19 11:17 05/06/19 11:17 05/06/19 11:17 - Laboratory Result Diagrams: 05/06/19 11:45 05/06/19 11:45 Laboratory results interpreted by me: 05/06/19 05/06/19 05/06/19 11:45 11:45 13:18 [place] % (Auto) 14.8 H Creatinine 1.44 H Est GFR (MDRD) Non-Af 52 L Glucose 119 H AST 191 H Total Protein 8.4 H Monotest POSITIVE H Discharge - Discharge Clinical Impression: Right nephrolithiasis, Epigastric abdominal pain Mononucleosis Qualifiers: Infectious mononucleosis etiology: unspecified organism Infectious mononucleosis complication: without complication Qualified Code(s): B27.90 - Infectious mononucleosis, unspecified without complication Condition: Stable Disposition: HOME, SELF-CARE Instructions: Kidney Stone ([facility]), Mononucleosis ([facility]), Antinausea Medication ([facility]), Toradol Injection ([facility]) Additional Instructions: Your ultrasound shows your fatty liver however you also have a right kidney stone that measures approximately 7 mm, please increase oral hydration, avoid any diuretics such as soda or coffee, use strainer every time you urinate to make sure that stone has passed, take the Flomax, ciprofloxacin and Zofran as directed to help pass your stone. Please follow-up with a urologist within the next few days. Your ultrasound did not show any obstruction of the stone or any hydronephrosis, which is a good sign. You also tested positive for mononucleosis which is a viral syndrome and supportive care is the treatment. Your rapid strep was negative Mononucleosis You have been diagnosed as having mononucleosis ("mono"). This is a viral infection which often lasts several weeks. Typically, a week or two of tiredness precedes a sore throat, swollen glands, fever, and aches. Sometimes there's a rash. In severe cases, swollen spleen and liver develop. There is no cure for mononucleosis. You should rest, drink plenty of fluids, and avoid contact sports until you are better. A follow-up examination is usually done in about a week. Further laboratory testing may be necessary then. See the doctor if there is significant worsening of the symptoms or onset of new symptoms such as severe headache, stiff neck, generalized abdominal pain, or faintness. Prescriptions: Ciprofloxacin HCl [Cipro 500 mg Tablet] 500 mg PO BID #10 tablet Tamsulosin HCl [Flomax 0.4 mg Cap.sr] 0.4 mg PO DAILY #7 cap.sr.24h Omeprazole 20 mg PO DAILY #30 capsule. Ondansetron [Zofran Odt 4 mg Tablet] 1 - 2 tab PO Q4H PRN #15 tab.rapdis PRN Reason: For Nausea/Vomiting Forms: Return to Work Referrals: SHELBIE ZAVALETA MD [ACTIVE STAFF] - Follow up as needed FRANCK AGUILA DO [NO LOCAL MD] - Follow up as needed [facility] [[facility] - Follow up tomorrow
[2019-05-06 11:46] LABS: APPEARANCE,URINE CLEAR; BILIRUBIN,URINE NEGATIVE (NEGATIVE); COLOR,URINE YELLOW; GLUCOSE, URINE NEGATIVE (NEGATIVE); KETONES,URINE NEGATIVE (NEGATIVE); LEUKOCYTE ESTERASE,URINE NEGATIVE (NEGATIVE); NITRITE,URINE NEGATIVE (NEGATIVE); PROTEIN,URINE NEGATIVE (NEGATIVE); URINE SPECIFIC GRAVITY 1.015; UROBILINOGEN,URINE NEGATIVE mg/dL (<2.0)
[2019-05-06 11:53] LABS: ABSOLUTE EOSINOPHILS # (AUTO) 0.2 10^3/uL (0.0-0.6); ABSOLUTE LYMPHOCYTES (AUTO) 1.1 10^3/uL (0.5-4.7); ABSOLUTE MONOCYTES (AUTO) 0.6 10^3/uL (0.1-1.4); ABSOLUTE NEUT (AUTO) 2.4 10^3/uL (1.7-8.2); BASOPHILS % (AUTO) 0.7 % (0-2); EOSINOPHILS % (AUTO) 4.5 % (0-6); HEMATOCRIT 45.6 % (37.9-51.0); LYMPHOCYTES % (AUTO) 26.2 % (13-45); MEAN CORPUSCULAR HEMOGLOBIN 30.1 pg (27.0-33.4); MEAN CORPUSCULAR VOLUME 86 fl (80-97); MONOCYTES % (AUTO) 14.8 % (3-13); PLATELET COUNT 163 10^3/uL (150-450); RED BLOOD COUNT 5.31 10^6/uL (4.35-5.55); RED CELL DISTRIBUTION WIDTH 13.6 % (11.5-14.0); SEGMENTED NEUTROPHILS % (AUTO) 53.8 % (42-78); TOTAL CELLS COUNTED % (AUTO) 100 %; WHITE BLOOD COUNT 4.4 10^3/uL (4.0-10.5)
[2019-05-06 12:13] LABS: ALBUMIN 4.8 g/dL (3.5-5.0); ALKALINE PHOSPHATASE 92 U/L (38-126); ANION GAP 13 (5-19); ASPARTATE AMINO TRANSFERASE 191 U/L (17-59); BILIRUBIN,DIRECT 0.2 mg/dL (0.0-0.4); BLOOD UREA NITROGEN 12 mg/dL (7-20); CALCIUM 9.9 mg/dL (8.4-10.2); CARBON DIOXIDE 24 mmol/L (22-30); CHLORIDE 103 mmol/L (98-107); GLUCOSE 119 mg/dL (75-110); POTASSIUM 4.1 mmol/L (3.6-5.0); TOTAL PROTEIN 8.4 g/dL (6.3-8.2)
--- NOTE | 2019-05-06 12:13 | RADIOLOGY REPORT (SQ) ---
EXAM DESCRIPTION: CHEST 2 VIEWS COMPLETED DATE/TIME: 05/06/2019 11:56 am REASON FOR STUDY: cough COMPARISON: 06/19/2011 TECHNIQUE: Frontal and lateral radiographic views of the chest acquired. NUMBER OF VIEWS: Two view. LIMITATIONS: None. FINDINGS: LUNGS AND PLEURA: No pneumothorax. No consolidation or pleural effusion. MEDIASTINUM AND HILAR STRUCTURES: Stable. HEART AND VASCULAR STRUCTURES: Stable. BONES: No acute findings. HARDWARE: None in the chest. OTHER: No other significant finding. IMPRESSION: NO ACUTE FINDINGS. TECHNICAL DOCUMENTATION: JOB ID: [id number] 2010 [employer]- All Rights Reserved Reading location - IP/workstation name: [email or web address]
[2019-05-06] MEDS ORDERED: MAG HYDROX/AL HYDROX/SIMETH SUSP 30 ML UDCUP PO ONE (12:38)
[2019-05-06] MEDS ORDERED: LIDOCAINE 2% VISCOUS SOLN 20 ML UDCUP PO ONE (12:38)
[2019-05-06] MEDS ORDERED: NORMAL SALINE 1000 ML 1,000 ML IV ONE ×2 (12:38→13:58)
[2019-05-06] MEDS ORDERED: METOCLOPRAMIDE HCL ORAL SOLN 10 MG/10 ML UDCUP PO ONE (12:38)
--- NOTE | 2019-05-06 12:39 | RADIOLOGY REPORT (SQ) ---
EXAM DESCRIPTION: U/S ABDOMEN LIMITED W/O DOP COMPLETED DATE/TIME: 05/06/2019 12:21 pm REASON FOR STUDY: epigastric abd pain COMPARISON: None. TECHNIQUE: Dynamic and static grayscale images acquired of the right upper quadrant abdomen and shira rded on PACS. Additional selected color Doppler and spectral images recorded. Note: Exam does not meet criteria for a complete doppler/duplex scan LIMITATIONS: Study limited due to acoustical interference from fat or from air in the bowel. FINDINGS: PANCREAS: Poorly seen secondary to acoustical interference from fat or from air in the bow el. LIVER: Echotexture is coarse with increased echogenicity consistent with fatty infiltration. LIVER VASCULATURE: Normal directional flow of the main portal vein and hepatic veins. GALLBLADDER: No stones. Normal wall thickness. No pericholecystic fluid. ULTRASOUND-DETECTED SCHOFIELD'S SIGN: Negative. INTRAHEPATIC DUCTS AND COMMON DUCT: CBD and intrahepatic ducts normal caliber. No filling defects. AORTA: No aneurysm. RIGHT KIDNEY: Normal size. No solid or suspicious masses identified. No hydronephrosis. Parenchyma l calcifications, largest 7 mm. PERITONEAL AND PLEURAL SPACES: No ascites or effusions. OTHER: No other significant finding. IMPRESSION: No gallstones or acute inflammatory changes. FATTY INFILTRATION OF THE LIVER. Probable right nephrolithiasis. No acute findings. TECHNICAL DOCUMENTATION: JOB ID: [id number] 2010 [employer]- All Rights Reserved Reading location - IP/workstation name: [email or web address]
[2019-05-06] MEDS ORDERED: KETOROLAC TROMETHAMINE INJ/PF 30 MG/1 ML SDV IV ONE (13:45)
[2019-05-06 13:58] LABS: A TYPE INFLUENZA AG NEGATIVE (NEGATIVE); B INFLUENZA AG NEGATIVE (NEGATIVE)
[2019-05-06 15:38] VITALS: BP 143/89
--- NOTE | 2019-05-06 19:34 | EKG REPORT ---
SEVERITY:- NORMAL ECG - SINUS RHYTHM : Confirmed by: Lisa More MD 06-May-2019 19:33:17
== END 2019-05-06 15:36 | disposition home or self-care (01) ==
LOC: ER 11:12
DX: N20.0 Calculus of kidney (principal); B27.90 Infectious mononucleosis, unspecified without complication; R10.13 Epigastric pain; R50.9 Fever, unspecified; R05 Cough; R51 Headache; Z88.6 Allergy status to analgesic agent; Z87.442 Personal history of urinary calculi
CPT/HCPCS: 93005; 99284; 96361; 96374; 36415; 87070; 87880; 83690; 85025; 86308; 80053; 81001; 84484; 87804; 71046; 76705; 93010; J3490; J1885; J7030

== ENCOUNTER 2019-05-22 16:52 | Emergency (ER) | payer OTHER ==
--- NOTE | 2019-05-22 18:01 | ER Document Report ---
ED Medical Screen (RME) - General Chief Complaint: Abnormal Lab Results Stated Complaint: ABNORMAL LABS Time Seen by Provider: 05/22/19 17:40 Primary Care Provider: VIVI EVANS [Primary Care Provider] - Follow up as needed Mode of Arrival: Ambulatory Information source: Patient Notes: 49-year-old male patient presented emergency department chief complaint of stating that [facility]. He states that the [facility] this morning and told him that one of his labs indicating that he may have a blood clot was elevated. Patient denies any chest pain, shortness of breath or leg swelling. He in fact denies any symptoms at all other than some mild fatigue however patient states that he works a lot. He denies any history of DVT or PE. He denies smoking, denies any recent travel. I have greeted and performed a rapid initial assessment of this patient. A comprehensive ED assessment and evaluation of the patient, analysis of test results and completion of the medical decision making process will be conducted by additional ED providers. I have specifically instructed the patient or family members with the patient to immediately return to any nursing staff should anything change in the patient's condition or with their chief complaint. TRAVEL OUTSIDE OF THE [place] IN LAST 30 DAYS: No - Related Data Allergies/Adverse Reactions: acetaminophen [From Percocet] Adverse Reaction (Verified 05/22/19 17:39) oxycodone [From Percocet] Adverse Reaction (Verified 05/22/19 17:39) Past Medical History - Social History Chew tobacco use (# tins/day): No Frequency of alcohol use: None Drug Abuse: None - Past Medical History Cardiac Medical History: Reports: Hx Hypertension - Patient reports he is b orderline hypertensive and does not take medications Pulmonary Medical History: Reports: Hx Bronchitis - as a child Renal/ Medical History: Reports: Hx Kidney Stones. Denies: Hx Peritoneal Dialysis Musculoskeltal Medical History: Reports Hx Arthritis - Neck and back Past Surgical History: Reports: Hx Appendectomy, Hx Herniorrhaphy, Hx Kidney (Renal Surgery) - lithotripsy, Hx Orthopedic Surgery - left knee arthroscopy - Immunizations Hx Diphtheria, Pertussis, Tetanus Vaccination: Yes Physical Exam - Vital signs Vitals: Temp Pulse Resp BP Pulse Ox 97.8 F 66 20 144/85 H 96 05/22/19 17:05 05/22/19 17:05 05/22/19 17:05 05/22/19 17:05 05/22/19 17:05 Course - Vital Signs Vital signs: Temp Pulse Resp BP Pulse Ox 97.8 F 66 20 144/85 H 96 05/22/19 17:05 05/22/19 17:05 05/22/19 17:05 05/22/19 17:05 05/22/19 17:05 Doctor's Discharge - Discharge Referrals: [facility] [[facility]] - Follow up as needed
[2019-05-22 18:50] LABS: ABSOLUTE BASOPHILS # (AUTO) 0.1 10^3/uL (0.0-0.2); ABSOLUTE EOSINOPHILS # (AUTO) 0.3 10^3/uL (0.0-0.6); ABSOLUTE LYMPHOCYTES (AUTO) 1.6 10^3/uL (0.5-4.7); ABSOLUTE MONOCYTES (AUTO) 0.5 10^3/uL (0.1-1.4); ABSOLUTE NEUT (AUTO) 3.5 10^3/uL (1.7-8.2); BASOPHILS % (AUTO) 0.9 % (0-2); EOSINOPHILS % (AUTO) 4.9 % (0-6); HEMATOCRIT 42.3 % (37.9-51.0); HEMOGLOBIN 14.9 g/dL (13.5-17.0); LYMPHOCYTES % (AUTO) 27.1 % (13-45); MEAN CORPUSCULAR HGB CONC 35.1 g/dL (32.0-36.0); MEAN CORPUSCULAR VOLUME 85 fl (80-97); PLATELET COUNT 204 10^3/uL (150-450); RED BLOOD COUNT 4.96 10^6/uL (4.35-5.55); RED CELL DISTRIBUTION WIDTH 13.9 % (11.5-14.0); SEGMENTED NEUTROPHILS % (AUTO) 59.1 % (42-78); TOTAL CELLS COUNTED % (AUTO) 100 %
[2019-05-22 18:50] LABS: APPEARANCE,URINE CLEAR; BILIRUBIN,URINE NEGATIVE (NEGATIVE); COLOR,URINE YELLOW; GLUCOSE, URINE NEGATIVE (NEGATIVE); KETONES,URINE NEGATIVE (NEGATIVE); LEUKOCYTE ESTERASE,URINE NEGATIVE (NEGATIVE); NITRITE,URINE NEGATIVE (NEGATIVE); PROTEIN,URINE NEGATIVE (NEGATIVE); URINE SPECIFIC GRAVITY 1.018; UROBILINOGEN,URINE NEGATIVE mg/dL (<2.0)
[2019-05-22 18:53] LABS: ALBUMIN 4.9 g/dL (3.5-5.0); ALKALINE PHOSPHATASE 79 U/L (38-126); ANION GAP 13 (5-19); ASPARTATE AMINO TRANSFERASE 134 U/L (17-59); BILIRUBIN,DIRECT 0.4 mg/dL (0.0-0.4); BILIRUBIN,TOTAL 0.9 mg/dL (0.2-1.3); BLOOD UREA NITROGEN 15 mg/dL (7-20); CALCIUM 10.4 mg/dL (8.4-10.2); CARBON DIOXIDE 25 mmol/L (22-30); CHLORIDE 104 mmol/L (98-107); GLUCOSE 100 mg/dL (75-110); POTASSIUM 4.5 mmol/L (3.6-5.0); TOTAL PROTEIN 8.7 g/dL (6.3-8.2)
--- NOTE | 2019-05-22 23:27 | RADIOLOGY REPORT (SQ) ---
EXAM DESCRIPTION: US EXTREMITY VEINS UNILATERAL COMPLETED DATE/TME: 05/22/2019 21:48 CLINICAL HISTORY: 49 years, Male, right upper arm puncture wound. postivie lab COMPARISON: None. TECHNIQUE: 40 images. Grayscale, color Doppler, spectral Doppler. LIMITATIONS: None. FINDINGS: Right upper extremity imaging. Subclavian, axillary, brachial, radial and ulnar veins are patent. No evidence of superficial thrombophlebitis. IMPRESSION: No evidence of deep venous thrombosis right upper extremity copyright 2010 [employer]- All Rights Reserved
[2019-05-23 00:24] VITALS: BP 152/97
--- NOTE | 2019-05-23 00:27 | ER Document Report ---
ED General - General Chief Complaint: Abnormal Lab Results Stated Complaint: ABNORMAL LABS Time Seen by Provider: 05/22/19 17:40 Primary Care Provider: [facility] [Primary Care Provider] - Follow up as needed Mode of Arrival: Ambulatory Information source: Patient Notes: 49-year-old male presented to ED for complaint of abnormal lab results. He states he was sent from the [place] to come to the emergency room to get evaluated for blood clot. He denies any chest pain shortness of breath leg swelling. He denies any long distance travel, any previous DVTs. He does not smoke. He and he has not had no recent surgeries. He states he is no symptoms at all except for some mild fatigue noticed and sometimes when he gets working he gets a little short of breath. He states he had some puncture wounds to his arms and right shoulder recently and is the only injury he has had. TRAVEL OUTSIDE OF THE [place] IN LAST 30 DAYS: No - HPI Onset/Duration: Gone Quality of pain: No pain Severity: None Pain Level: Denies Associated symptoms: Shortness of breath - Short of breath sometimes at work Exacerbated by: Denies Relieved by: Denies Similar symptoms previously: Yes Recently seen / treated by doctor: Yes - Related Data Allergies/Adverse Reactions: acetaminophen [From Percocet] Adverse Reaction (Verified 05/22/19 17:39) oxycodone [From Percocet] Adverse Reaction (Verified 05/22/19 17:39) Past Medical History - General Information source: Patient - Social History Smoking Status: Never Smoker Chew tobacco use (# tins/day): No Frequency of alcohol use: None Drug Abuse: None Lives with: Family Family History: Reviewed & Not Pertinent Patient has suicidal ideation: No Patient has homicidal ideation: No - Past Medical History Cardiac Medical History: Reports: Hx Hypertension - Patient reports he is borderline hypertensive and does not take medications Pulmonary Medical History: Reports: Hx Bronchitis - as a child EENT Medical History: Reports: None Neurological Medical History: Reports: None Endocrine Medical History: Reports: None Renal/ Medical History: Reports: Hx Kidney Stones Malignancy Medical History: Reports None GI Medical History: Reports: None Musculoskeletal Medical History: Reports Hx Arthritis - Neck and back Psychiatric Medical History: Reports: None Traumatic Medical History: Reports: None Infectious Medical History: Reports: None Past Surgical History: Reports: Hx Appendectomy, Hx Herniorrhaphy, Hx Kidney (Renal Surgery) - lithotripsy, Hx Orthopedic Surgery - left knee arthroscopy - Immunizations Hx Diphtheria, Pertussis, Tetanus Vaccination: Yes Review of Systems - Review of Systems Constitutional: No symptoms reported EENT: No symptoms reported Cardiovascular: No symptoms reported Respiratory: Short of breath Gastrointestinal: No symptoms reported Genitourinary: No symptoms reported Male Genitourinary: No symptoms reported Musculoskeletal: No symptoms reported Skin: No symptoms reported Hematologic/Lymphatic: No symptoms reported Neurological/Psychological: No symptoms reported -: Yes All other systems reviewed and negative Physical Exam - Vital signs Vitals: Temp Pulse Resp BP Pulse Ox 97.8 F 66 20 144/85 H 96 05/22/19 17:05 05/22/19 17:05 05/22/19 17:05 05/22/19 17:05 05/22/19 17:05 Interpretation: Normal - General General appearance: Appears well, Alert - HEENT Head: Normocephalic, Atraumatic Eyes: Normal Pupils: PERRL - Respiratory Respiratory status: No respiratory distress Chest status: Nontender Breath sounds: Normal Chest palpation: Normal - Cardiovascular Rhythm: Regular Heart sounds: Normal auscultation Murmur: No - Abdominal Inspection: Normal Distension: No distension Bowel sounds: Normal Tenderness: Nontender Organomegaly: No organomegaly - Back Back: Normal, Nontender - Extremities General upper extremity: Normal inspection, Nontender, Normal color, Normal ROM, Normal temperature General lower extremity: Normal inspection, Nontender, Normal color, Normal ROM, Normal temperature, Normal weight bearing. No: Abi's sign - Neurological Neuro grossly intact: Yes Cognition: Normal Orientation: AAOx4 [place] Coma Scale Eye Opening: Spontaneous [place] Coma Scale Verbal: Oriented [place] Coma Scale Motor: Obeys Commands [place] Coma Scale Total: 15 Speech: Normal Motor strength normal: LUE, RUE, LLE, RLE Sensory: Normal - Psychological Associated symptoms: Normal affect, Normal mood - Skin Skin Temperature: Warm Skin Moisture: Dry Skin Color: Normal Location of irregularity: Extremities - 4 small puncture wounds to the right arm otherwise no injuries Irregularity with: negative: Swelling, Tenderness, Warmth Course - Re-evaluation Re-evalutation: 05/23/19 00:13 PERC score 0 criteria No need for further workup, as <2% chance of PE. If no criteria are positive and clinicians pre-test probability is <15%, PERC Rule criteria are satisfied. 05/23/19 00:27 Wells score low probability, venous Doppler to the right arm which is the only one that has an injury was negative there is no risk factors he is O2 satting at 99% he is not short of breath he has no chest pain his pulse is in the 50s and 60s and there is no reason to do a CAT scan of this gentleman at this time - Vital Signs Vital signs: Temp Pulse Resp BP Pulse Ox 97.9 F 55 L 18 152/97 H 99 05/23/19 00:22 05/23/19 00:22 05/23/19 00:22 05/23/19 00:22 05/23/19 00:22 - Laboratory Result Diagrams: 05/22/19 18:15 05/22/19 18:15 Laboratory results interpreted by me: 05/22/19 18:15 Creatinine 1.48 H Est GFR (MDRD) Non-Af 51 L Calcium 10.4 H AST 134 H Total Protein 8.7 H - Diagnostic Test Radiology reviewed: Image reviewed, Reports reviewed Discharge - Discharge Clinical Impression: Abnormal laboratory test result Condition: Stable Disposition: HOME, SELF-CARE Additional Instructions: You have had no chest pain or shortness of breath no leg swelling no arm sw elling. Lab values are negative in the emergency room. Venous Doppler to the right arm which was the only arm that is been injured was negative Your well score is a low probability of a blood clot and your PERC score was 0. You do not have any history of a DVT or PE. You do not smoke. And you deny any long distance travel. Please follow[facility] with [facility] and[facility] if you continue to have intermittent shortness of breath at work. You state you have not had any shortness of breath or pain for over a week. FOLLOW-UP CARE: If you have been referred to a physician for follow-up care, call the physicians office for an appointment as you were instructed or within the next two days. If you experience worsening or a significant change in your symptoms, notify the physician immediately or return to the Emergency Department at any time for re-evaluation. Referrals: [facility] [Primary [facility]] - Follow up as needed
== END 2019-05-23 00:39 | disposition home or self-care (01) ==
LOC: ER 16:52
DX: Z04.89 Encounter for examination and observation for other specified reasons (principal); S41.131A Puncture wound without foreign body of right upper arm, initial encounter; X58.XXXA Exposure to other specified factors, initial encounter; R53.83 Other fatigue; R06.02 Shortness of breath
CPT/HCPCS: 36415; 80053; 81001; 85025; 93971; 99284

== ENCOUNTER 2019-12-12 08:03 | Emergency (ER) | payer OTHER ==
[2019-12-12 08:11] VITALS: BP 154/90
[2019-12-12] MEDS ORDERED: KETOROLAC TROMETHAMINE 60 MG/2 ML SDV IM ONE (09:33)
--- NOTE | 2019-12-12 09:41 | ER Document Report ---
ED General - General Chief Complaint: Lower Abdominal Pain Stated Complaint: PELVIC PAIN Time Seen by Provider: 12/12/19 09:00 Primary Care Provider: CRISTINA,VIVI [Primary Care Provider] - Follow up as needed TRAVEL OUTSIDE OF THE [place] 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 Subsequently the area is sore with movement coughing or taking a deep breath. He took some [id number] ibuprofen last night and again this morning with partial relief. He is concerned because he previously had surgical repair of a right-sided inguinal hernia about 15 years ago. - Related Data Allergies/Adverse Reactions: oxycodone [From Percocet] Adverse Reaction (Verified 12/12/19 08:16) Home Medications: clonidine 0.1mg Past Medical History - General Information source: Patient, [facility] Records - Social History Smoking Status: Former Smoker Chew tobacco use (# tins/day): No Frequency of alcohol use: None Drug Abuse: None Family History: Reviewed & Not Pertinent - Past Medical History Cardiac Medical History: Reports: Hx Hypertension - Patient reports he is borderline hypertensive and does not take medications, Other - Currently off his BP medication due to noncompliance Pulmonary Medical History: Reports: Hx Bronchitis - as a child Renal/ Medical History: Reports: Hx Kidney Stones. Denies: Hx Peritoneal Dialysis Musculoskeletal Medical History: Reports Hx Arthritis - Neck and back Past Surgical History: Reports: Hx Appendectomy, Hx Herniorrhaphy, Hx Kidney (Renal Surgery) - lithotripsy, Hx Orthopedic Surgery - left knee arthroscopy - Immunizations Hx Diphtheria, Pertussis, Tetanus Vaccination: Yes Review of Systems - Review of Systems Notes: Constitutional: Negative for fever. HENT: Negative for sore throat. Eyes: Negative for visual changes. Cardiovascular: Negative for chest pain. Respiratory: Negative for shortness of breath. Gastrointestinal: Negative for abdominal pain, vomiting or diarrhea. Genitourinary: Negative for dysuria. Musculoskeletal: As per HPI. Skin: Negative for rash. Neurological: Negative for headaches, weakness or numbness. 10 point ROS negative except as marked above and in HPI. Physical Exam - Vital signs Vitals: Temp Pulse Resp BP Pulse Ox 98.2 F 62 17 154/90 H 96 12/12/19 08:09 12/12/19 08:09 12/12/19 08:09 12/12/19 08:09 12/12/19 08:09 Interpretation: Hypertensive - Notes Notes: GENERAL: Well-developed well-nourished appearing in no acute distress. SKIN: Good turgor no rashes. HEAD: Normocephalic atraumatic. EYES: PERRLA. EOMI. Conjunctivae and sclerae clear. EARS: CANALS AND TMS CLEAR. NOSE: CLEAR. MOUTH: Moist mucosa. Good dentition. No stridor or edema. No drooling. NECK: Supple. No masses or thyromegaly. No adenopathy. Carotids 2+ without br uits. No JVD. BACK: Symmetrical without tenderness. CHEST: Respirations unlabored. Breath sounds clear and symmetrical. HEART: Regular rhythm. No murmur gallop or rub. ABDOMEN: Mild superficial tenderness over the suprapubic area. No visible ecchymosis. No obvious abdominal wall hernia. Soft without masses, organomegaly or rebound. Bowel sounds normally active. No bruits. GENITALIA: Normal uncircumcised male. No masses or hernia appreciated. No urethral discharge. EXTREMITIES: Moderate degenerative changes inter-phalangeal joints of both hands no edema. No calf tenderness. Cap refill less than 1.5 seconds. Dorsalis pedis and posterior tibial pulses 3+ and symmetrical. NEUROLOGICAL: GCS 15. Alert and oriented x3. Normal gait. Fluent speech. Cranial nerves II through XII intact. Sensorimotor and cerebellar normal. Normal tone. PSYCHIATRIC: Appropriate affect. Course - Re-evaluation Re-evalutation: 12/12/19 09:45 Toradol IM. Findings, clinical impression and plan of treatment have been discussed with patient/family. Understanding of current findings and recommendations has been acknowledged by them and there is agreement regarding disposition and follow-up. - Vital Signs Vital signs: Temp Pulse Resp BP Pulse Ox 98.2 F 62 17 154/90 H 96 12/12/19 08:09 12/12/19 08:09 12/12/19 08:09 12/12/19 08:09 12/12/19 08:09 Discharge - Discharge Clinical Impression: Acute muscular strain abdominal wall Condition: Stable Disposition: HOME, SELF-CARE Additional Instructions: Muscle Strain You have strained a muscle -- torn the fibers within the muscle. This often occurs with strenuous exertion, or during an injury that suddenly stretches the muscle. The seriousness of a strain varies. Some strains heal within days, others cause problems for months. X-rays cannot show a muscle strain. X-rays are taken only if symptoms suggest that a fracture could be present. The usual treatment of a muscle strain is rest and ice packs. Sometimes, a sling, splint, or crutches may be necessary to rest the muscle. The muscle can be used again once pain subsides. Severe strains require a special exercise and stretching program to prevent permanent stiffness and disability. Your doctor will advise you if this will be necessary. Call the doctor immediately if pain or swelling becomes severe, or if numbness or discoloration develop. Take prescribed medications as instructed. You may also find ice packs to be helpful. You will be provided a work note for the next 3 days. Follow-up with your primary care doctor at the [place] prior to returning to regular duty at work. Avoid heavy lifting until cleared to return to unrestricted duty by your physician. Restart your blood pressure medication as previously prescribed. Return here as needed for new or worsening symptoms. Prescriptions: Cyclobenzaprine HCl [Flexeril 10 mg Tablet] 10 mg PO QHS PRN #15 tablet PRN Reason: Indomethacin 50 mg PO TID 5 Days #15 capsule Forms: Return to Work, Elevated Blood Pressure Referrals: [facility] [Primary Care Provider] - Follow up as needed
== END 2019-12-12 10:03 | disposition home or self-care (01) ==
LOC: ER 08:03
DX: S39.011A Strain of muscle, fascia and tendon of abdomen, initial encounter (principal); R10.2 Pelvic and perineal pain; X50.0XXA Overexertion from strenuous movement or load, initial encounter; Y99.0 Civilian activity done for income or pay; Z88.6 Allergy status to analgesic agent; Z87.442 Personal history of urinary calculi
CPT/HCPCS: 99283; 96372; J1885

== ENCOUNTER 2020-02-10 04:20 | Emergency (ER) | payer OTHER ==
[2020-02-10 04:27] VITALS: BP 151/93
--- NOTE | 2020-02-10 05:13 | ER Document Report ---
HPI - HPI Time Seen by Provider: 02/10/20 05:09 Pain Level: 4 Context: Patient is a 49-year-old male who presents to the emergency department with a chief complaint of left ear pain that started tonight. He states that it is a throbbing, severe pain. He reported to the nurse that he went to put a Q-tip and to help clean his ears, but was unable to. Patient reports to me that he does not use Q-tips to clean his ears. Patient has history of ear infections in the past. Denies any shortness of breath, sore throat, difficulty breathing, or any other symptoms. - ROS Systems Reviewed and Negative: Yes All other systems reviewed and negative - CONSTITUTIONAL Constitutional: DENIES: Fever, Chills - EENT EENT: REPORTS: Ear Pain - Left. DENIES: Sore Throat, Nasal Drainage-Clear, Nasal Drainage-Purulent, Congestion, Eye problems - NEURO Neurology: DENIES: Headache, Weakness - CARDIOVASCULAR Cardiovascular: DENIES: Chest pain - RESPIRATORY Respiratory: DENIES: Coughing - REPRODUCTIVE Reproductive: DENIES: : - DERM Skin Color: Normal Skin Problems: None Past Medical History - Social History Smoking Status: Never Smoker Chew tobacco use (# tins/day): No Frequency of alcohol use: None Drug Abuse: None Family History: Reviewed & Not Pertinent - Past Medical History Cardiac Medical History: Reports: Hx Hypertension - Patient reports he is borderline hypertensive and does not take medications Pulmonary Medical History: Reports: Hx Bronchitis - as a child Renal/ Medical History: Reports: Hx Kidney Stones. Denies: Hx Peritoneal Dialysis Musculoskeletal Medical History: Reports Hx Arthritis - Neck and back Past Surgical History: Reports: Hx Appendectomy, Hx Herniorrhaphy, Hx Kidney (Renal Surgery) - lithotripsy, Hx Orthopedic Surgery - left knee arthroscopy - Immunizations Hx Diphtheria, Pertussis, Tetanus Vaccination: Yes Vertical Provider Document - CONSTITUTIONAL Agree With Documented VS: Yes Exam Limitations: No Limitations General Appearance: No Apparent Distress - INFECTION CONTROL TRAVEL OUTSIDE OF THE [place] IN LAST 30 DAYS: No - HEENT HEENT: Atraumatic, Normocephalic, PERRLA, Tympanic Membrane Red - Left. negative: Pharyngeal Erythema, Tympanic Membrane Bulging - NECK Neck: Normal Inspection - RESPIRATORY Respiratory: Breath Sounds Normal, No Respiratory Distress - CARDIOVASCULAR Cardiovascular: Regular Rate, Regular Rhythm Pulses: Normal: Radial - GI/ABDOMEN Gastrointestinal: Abdomen Soft, Abdomen Non-Tender - MUSCULOSKELETAL/EXTREMETIES Musculoskeletal/Extremeties: FROM - NEURO Level of Consciousness: Awake, Alert, Appropriate Motor/Sensory: No Motor Deficit, No Sensory Deficit - DERM Integumentary: Warm, Dry, No Rash Course - Re-evaluation Re-evalutation: 02/10/20 05:39 Patient's physical exam and history is consistent with otitis externa. Patient will be placed on Ciprodex drops. I do not suspect patient has mastoiditis, as there is no pain at the mastoid process. Exam consistent with otitis media also. Patient will be started on amoxicillin. Follow-up precautions were given. Verbal discharge instructions were given to the patient. They verbalized understanding. They are stable for discharge. - Vital Signs Vital signs: Temp Pulse Resp BP Pulse Ox 98.0 F 51 L 17 151/93 H 98 02/10/20 04:25 02/10/20 04:25 02/10/20 04:25 02/10/20 04:25 02/10/20 04:25 Discharge - Discharge Clinical Impression: Otitis externa Qualifiers: Otitis externa type: unspecified type Chronicity: acute Laterality: left Qualified Code(s): H60.502 - Unspecified acute noninfective otitis externa, left ear Otitis media Qualifiers: Otitis media type: suppurative Chronicity: acute Laterality: left Recurrence: not specified as recurrent Spontaneous tympanic membrane rupture: without spontaneous rupture Qualified Code(s): H66.002 - Acute suppurative otitis media without spontaneous rupture of ear drum, left ear Condition: Stable Disposition: HOME, SELF-CARE Instructions: Use of Ear Drops ([facility]), Otitis Externa ([facility]) Additional Instructions: Otitis Externa You have otitis externa -- an infection of the outer ear canal. This can be very painful. It's sometimes called "swimmer's ear," because it often occurs after prolonged water exposure. Many things, such as earwax and dirt in the ear, can contribute to it. The usual treatment is antibiotic/antiinflammatory ear drops. Occasionally, a wick will be placed in the ear to draw in the medicine. If the infection is severe, an oral antibiotic may be prescribed. Pain medication is often needed. Avoid getting water in the ear. Outer ear infections often take longer to heal than you might expect. Some tenderness and ache in the ear may persist for about two weeks. See your physician if you fail to improve as expected. Call the doctor at once if you develop fever, increasing swelling (particularly if it makes your ear "poke out"), severe headache, stiff neck, or decreased hearing. Otitis Media You have a middle ear infection (otitis media). This is usually a complication of a cold or sore throat. The middle ear cavity becomes filled with infection. Pressure and stretching of the ear drum cause pain. Antibiotics are required. A 10 day course is usually prescribed. A decongestant may be recommended if you have a "runny nose." You may need anesthetic drops or other pain medication. A follow-up exam may be recommended to make sure the infection has completely cleared. If the ear begins to drain, it means the ear drum has ruptured. This will usually heal spontaneously. However, it means you should keep the ear dry until re-examined by a doctor. Call the physician or return for examination at once if there is severe hea dache, stiff neck, confusion, increasing fever, or dizziness. You should improve significantly within two days. If you're not better, call the doctor. Apply 4 drops of the Ciprodex to your left ear twice a day for 7 days. Prescriptions: Amoxicillin Trihydrate [Amoxil 500 mg Capsule] 500 mg PO TID #30 cap Referrals: [facility] [Primary Care [facility]] - Follow up in 1 week
[2020-02-10] MEDS ORDERED: CIPROFLOXACIN HCL/DEXAMETH OTIC DROP 7.5 ML AS ONE (05:34)
[2020-02-10] MEDS ORDERED: AMOXICILLIN TRIHYDRATE 500 MG CAPSULE PO ONE (05:34)
== END 2020-02-10 05:48 | disposition home or self-care (01) ==
LOC: ER 04:20
DX: H60.502 Unspecified acute noninfective otitis externa, left ear (principal); H92.02 Otalgia, left ear; Z87.442 Personal history of urinary calculi
CPT/HCPCS: 99283; J3490

== ENCOUNTER 2020-02-24 00:41 | Emergency (ER) | payer OTHER ==
[2020-02-24 00:46] VITALS: BP 175/93
--- NOTE | 2020-02-24 01:55 | ER Document Report ---
ED General - General Chief Complaint: Back Pain Stated Complaint: LOWER BACK PAIN Time Seen by Provider: 02/24/20 01:54 Primary Care Provider: VIVI EVANS [NO LOCAL MD] - Follow up in 3-5 days Notes: Patient is a 49-year-old male who comes emergency department for chief complaint of back pain. He states that he woke up this morning with sharp pain in his back that felt like a tight spasming shooting pain occasionally shooting into his left leg down the back of the leg. He states the pain is significantly worsened and spasmed, now he has difficulty moving at all. 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 He denies any particular trauma or injury that he recalls. He has never had back surgery. He denies incontinence, numbness. He states he has had problems with his back and frequent back pain, he states that he tried his home Robaxin and diclofenac topical but this did not help. Patient denies diabetes, IV drug abuse, fever. TRAVEL OUTSIDE OF THE [place] IN LAST 30 DAYS: No - Related Data Allergies/Adverse Reactions: oxycodone [From Percocet] Adverse Reaction (Verified 12/12/19 08:16) Past Medical History - General Information source: Patient - Social History Smoking Status: Never Smoker Frequency of alcohol use: None Drug Abuse: None Lives with: Family Family History: Reviewed & Not Pertinent Patient has homicidal ideation: No - Past Medical History Cardiac Medical History: Reports: Hx Hypertension - Patient reports he is borderline hypertensive and does not take medications Pulmonary Medical History: Reports: Hx Bronchitis - as a child Renal/ Medical History: Reports: Hx Kidney Stones. Denies: Hx Peritoneal Dialysis Musculoskeletal Medical History: Reports Hx Arthritis - Neck and back Past Surgical History: Reports: Hx Appendectomy, Hx Herniorrhaphy, Hx Kidney (Renal Surgery) - lithotripsy, Hx Orthopedic Surgery - left knee arthroscopy - Immunizations Hx Diphtheria, Pertussis, Tetanus Vaccination: Yes Review of Systems - Review of Systems Constitutional: No symptoms reported EENT: No symptoms reported Cardiovascular: No symptoms reported Respiratory: No symptoms reported Gastrointestinal: No symptoms reported Genitourinary: No symptoms reported Male Genitourinary: No symptoms reported Musculoskeletal: See HPI Skin: No symptoms reported Hematologic/Lymphatic: No symptoms reported Neurological/Psychological: No symptoms reported Physical Exam - Vital signs Vitals: Temp Pulse Resp BP Pulse Ox 97.8 F 70 20 175/93 H 97 02/24/20 00:46 02/24/20 00:46 02/24/20 00:46 02/24/20 00:46 02/24/20 00:46 - Notes Notes: GENERAL: Alert, interacts well. No acute distress unless patient moves or performs position changes HEAD: Normocephalic, atraumatic. EYES: Pupils equal, round, and reactive to light. Extraocular movements intact. ENT: Oral mucosa moist, tongue midline. Oropharynx unremarkable. Airway patent. NECK: Full range of motion. Supple. Trachea midline. No lymphadenopathy. LUNGS: Clear to auscultation bilaterally, no wheezes, rales, or rhonchi. No respiratory distress. Non-tender chest wall. HEART: Regular rate and rhythm. No murmur ABDOMEN: Soft, non-tender. Non-distended. Bowel sounds present in all 4 quadrants. GENITOURINARY: Deferred EXTREMITIES: Moves all 4 extremities spontaneously. No edema, normal radial and dorsalis pedis pulses bilaterally. No cyanosis. BACK: Pain with rigid muscles on the left lower lumbar musculature. Positive straight leg raise on the left but not on the right. No midline tenderness, no saddle anesthesia, no signs of trauma. Normal upper and lower extremity range of motion, normal strength, normal distal neurovascular exam. Pain with position changes and ambulation. NEUROLOGICAL: Alert and oriented x3. Normal speech. Cranial nerves II through XII grossly intact. Strength 5/5 in all extremities. PSYCH: Normal affect, normal mood. SKIN: Warm, dry, normal turgor. No rashes or lesions noted. 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 When he does this he does appear very uncomfortable. Patient is hypertensive but I believe this is from the pain, patient has symptoms that are so easily reproducible that I believe this is musculoskeletal. Normal distal pulses. I did discuss potential imaging and work-up but after discussion this was deferred because patient did not have any injury and has no risk factors. Patient was treated with dexamethasone, Toradol, will be provided with stronger muscle relaxer at home, he will be provided with work release, he does have good primary care follow- up. Discussed return precautions in detail. Patient states appreciation and agreement. Stable at time of discharge. - Vital Signs Vital signs: Temp Pulse Resp BP Pulse Ox 97.8 F 70 20 175/93 H 97 02/24/20 00:46 02/24/20 00:46 02/24/20 00:46 02/24/20 00:46 02/24/20 00:46 Discharge - Discharge Clinical Impression: Lower back pain Qualifiers: Chronicity: acute Back pain laterality: left Sciatica presence: with sciatica Sciatica laterality: sciatica of left side Qualified Code(s): M54.42 - Lumbago with sciatica, left side Condition: Stable Disposition: HOME, SELF-CARE Additional Instructions: Based on your evaluation your back pain appears to be from muscle spasm and most likely some disc herniation in your lumbar back as we discussed. I recommend heat over the area, the prescribed muscle relaxer, the anti-inflammatory as prescribed. Rest, avoid lifting or twisting. Follow-up with primary care for additional management. Return if you worsen including developing numbness, losing control of your bowel or bladder, fever, severe worsening pain, or any other concerning or worsening symptoms. Prescriptions: Naproxen 500 mg PO BID PRN #20 tablet PRN Reason: Diazepam [Valium 5 mg Tablet] 1 - 2 tab PO TID PRN #15 tablet PRN Reason: Forms: Return to Work, Elevated Blood Pressure [facility]errals: [facility] [NO [facility]AL MD] - Follow up in 3-5 days
[2020-02-24] MEDS ORDERED: HYDROCODONE/ACETAMINOPHEN 5-325 MG (6 TAB/ER DISP) PO PRN (02:11)
[2020-02-24] MEDS ORDERED: DEXAMETHASONE SOD PHOS INJ 10 MG/1 ML VIAL IM ONE (02:11)
[2020-02-24] MEDS ORDERED: KETOROLAC TROMETHAMINE 60 MG/2 ML SDV IM ONE (02:11)
== END 2020-02-24 02:39 | disposition home or self-care (01) ==
LOC: ER 00:41
DX: M54.42 Lumbago with sciatica, left side (principal); Z79.899 Other long term (current) drug therapy; Z79.1 Long term (current) use of non-steroidal anti-inflammatories (NSAID)
CPT/HCPCS: 99284; 96372; J1885; J1100